=== PATIENT | male | born 1940 | race African-American/Black ===

== ENCOUNTER 2018-02-13 11:18 | Inpatient (IN) | payer MEDICARE, MEDICAID ==
[~2018-02-13] VITALS: Ht 170.2 cm; Wt 72.1 kg
[2018-02-13] MEDS ORDERED: LORAZEPAM2 MG/1 M4 ORAL (11:41)
[2018-02-13] MEDS ORDERED: NS 1000ml 1,400 ML IVLG ONE (12:15)
[2018-02-13 12:54] LABS: ANION GAP 12 mmol/L (5-15); BLOOD UREA NITROGEN 44 mg/dL (7-18); CALCIUM 9.3 MG/DL (8.5-10.1); CARBON DIOXIDE 28 MMOL/L (21-32); CHLORIDE 114 MMOL/L (98-107); CREATININE 1.4 MG/DL (0.55-1.30); POTASSIUM 3.5 MMOL/L (3.5-5.1); SODIUM 153 MMOL/L (136-145)
[2018-02-13 12:55] LABS: HEMATOCRIT 38.1 % (42.0-52.0); HEMOGLOBIN 13.1 G/DL (14.2-18.0); MEAN CORPUSCULAR VOLUME 84 FL (80-99); PLATELET COUNT 102 K/UL (150-450); RED BLOOD COUNT 4.53 M/UL (4.70-6.10); RED CELL DISTRIBUTION WIDTH 12.4 % (11.6-14.8); WHITE BLOOD COUNT 7.6 K/UL (4.8-10.8)
[2018-02-13 13:00] LABS: INR 1.1 (0.9-1.1)
[2018-02-13 13:09] LABS: ALANINE AMINOTRANSFERASE 78 U/L (12-78); ALBUMIN/GLOBULIN RATIO 0.7 (1.0-2.7); ALKALINE PHOSPHATASE 45 U/L (46-116); ASPARTATE AMINO TRANSFERASE 55 U/L (15-37); BILIRUBIN,TOTAL 0.2 MG/DL (0.2-1.0); CKMB 11.4 NG/ML (0.0-3.6); CREATINE KINASE 95 U/L (26-308)
[2018-02-13 13:14] VITALS: BP 106/85
--- NOTE | 2018-02-13 13:23 | Diagnostic Imaging Report ---
Indications: Altered mental status Technique: Spiral acquisitions obtained through the brain. Angled axial and coronal 5 x 5 mm slices were reconstructed. Total dose length product 1491.99 mGycm. CTDI vol(s) 70.38 mGy. Dose reduction achieved using automated exposure control Comparison: None. Findings: There is marked age-related enlargement of the ventricles and extra axial CSF spaces, and considerable periventricular deep white matter low-attenuation consistent with chronic ischemic change. There is an age-indeterminate lacunar infarct in the left external capsule region. No acute intracranial hemorrhage nor edema, mass effect, nor midline shift. Otherwise normal bradley-white differentiation. Visualized orbits and sinuses are unremarkable. The calvarium is intact. There is an ununited multipartite fracture deformity of the left zygomatic arch. Impression: Chronic and age-related changes. Age indeterminate left external capsule region lacunar infarct, suspect old. MRI may be useful to clarify if clinically indicated Negative for acute intracranial bleed or mass effect Multipartite fracture deformity of the left zygomatic arch. Age indeterminate although suspect old. Correlate with clinical history The CT scanner at [facility] is accredited by the [employer] and the scans are performed using protocols designed to limit radiation exposure to as low as reasonably achievable to attain images of sufficient resolution adequate for diagnostic evaluation.
--- NOTE | 2018-02-13 14:46 | Diagnostic Imaging Report ---
Indication: Cough Technique: One view of the chest Comparison: none Findings: Lungs are somewhat hyperinflated. Lungs and pleural spaces are clear. There are old healed left rib fractures. The aorta is somewhat tortuous. Impression: No acute process. Findings as noted
--- NOTE | 2018-02-13 16:20 | Emergency Room Report ---
History of Present Illness General Chief Complaint: Altered Level of Consciousness Source: Family Member Present Illness Allergies: Coded Allergies: No Known Allergies (Unverified , 02/13/18) Physical Exam Vital Signs Date Time Temp Pulse Resp B/P (MAP) Pulse Ox O2 Delivery O2 Flow Rate FiO2 02/13/18 11:34 66 12 Room Air 02/13/18 13:14 106/85 100 Medical Decision Making Diagnostic Impression: Primary Impression: Altered mental status Additional Impressions: CVA (cerebral vascular accident) Hypernatremia Dehydration Dysphagia Laboratory Tests Test 02/13/18 12:20 02/13/18 12:23 02/13/18 14:30 White Blood Count 7.6 K/UL (4.8-10.8) Red Blood Count 4.53 M/UL (4.70-6.10) L Hemoglobin 13.1 G/DL (14.2-18.0) L Hematocrit 38.1 % (42.0-52.0) L Mean Corpuscular Volume 84 FL (80-99) Mean Corpuscular Hemoglobin 28.9 PG (27.0-31.0) Mean Corpuscular Hemoglobin Concent 34.4 G/DL (32.0-36.0) Red Cell Distribution Width 12.4 % (11.6-14.8) Platelet Count 102 K/UL (150-450) L Mean Platelet Volume 9.2 FL (6.5-10.1) Neutrophils (%) (Auto) % (45.0-75.0) Lymphocytes (%) (Auto) % (20.0-45.0) Monocytes (%) (Auto) % (1.0-10.0) Eosinophils (%) (Auto) % (0.0-3.0) Basophils (%) (Auto) % (0.0-2.0) Differential Total Cells Counted 100 Neutrophils % (Manual) 92 % (45-75) H Lymphocytes % (Manual) 3 % (20-45) L Monocytes % (Manual) 5 % (1-10) Eosinophils % (Manual) 0 % (0-3) Basophils % (Manual) 0 % (0-2) Band Neutrophils 0 % (0-8) Platelet Estimate Decreased L Platelet Morphology Normal Red Blood Cell Morphology Normal Prothrombin Time 11.7 SEC (9.30-11.50) H Prothrombin Time INR 1.1 (0.9-1.1) PTT 30 SEC (23-33) Sodium Level 153 MMOL/L (136-145) H Potassium Level 3.5 MMOL/L (3.5-5.1) Chloride Level 114 MMOL/L (98-107) H Carbon Dioxide Level 28 MMOL/L (21-32) Anion Gap 12 mmol/L (5-15) Blood Urea Nitrogen 44 mg/dL (7-18) H Creatinine 1.4 MG/DL (0.55-1.30) H Estimate Glomerular Filtration Rate mL/min (>60) Glucose Level 89 MG/DL (74-106) Calcium Level 9.3 MG/DL (8.5-10.1) Phosphorus Level 4.0 MG/DL (2.5-4.9) Magnesium Level 2.5 MG/DL (1.8-2.4) H Total Bilirubin 0.2 MG/DL (0.2-1.0) Aspartate Amino Transferase (AST) 55 U/L (15-37) H Alanine Aminotransferase (ALT) 78 U/L (12-78) Alkaline Phosphatase 45 U/L (46-116) L Total Creatine Kinase 95 U/L (26-308) Creatine Kinase MB 11.4 NG/ML (0.0-3.6) H Creatine Kinase MB Relative Index 12.0 Troponin I 0.006 ng/mL (0.000-0.056) Total Protein 7.2 G/DL (6.4-8.2) Albumin 3.0 G/DL (3.4-5.0) L Globulin 4.2 g/dL Albumin/Globulin Ratio 0.7 (1.0-2.7) L Lactic Acid Level 3.90 mmol/L (0.4-2.0) H 4.10 mmol/L (0.66-2.22) H EKG Diagnostic Results Rate: normal Rhythm: NSR ST Segments: no acute changes Last Vital Signs Date Time Temp Pulse Resp B/P (MAP) Pulse Ox O2 Delivery O2 Flow Rate FiO2 02/13/18 13:17 58 12 Room Air 02/13/18 13:14 106/85 100 Referrals: NON PHYSICIAN (PCP) Leisa Montesinos DO Feb 13, 2018 16:20
[2018-02-13 17:11] VITALS: BP 112/91
[2018-02-13 18:25] VITALS: BP 113/54
[2018-02-13 20:00] VITALS: BP 96/67
[2018-02-13] MEDS ORDERED: Gadavist 7.5mMol/7.5ml vial IV PRN (21:00)
[2018-02-14] VITALS: BP 130/67
[2018-02-14 04:00] VITALS: BP 110/62
[2018-02-14 07:56] VITALS: BP 93/55
[2018-02-14 07:59] LABS: HEMATOCRIT 34.3 % (42.0-52.0); HEMOGLOBIN 11.6 G/DL (14.2-18.0); MEAN CORPUSCULAR VOLUME 84 FL (80-99); PLATELET COUNT 79 K/UL (150-450); RED BLOOD COUNT 4.09 M/UL (4.70-6.10); RED CELL DISTRIBUTION WIDTH 12.2 % (11.6-14.8); WHITE BLOOD COUNT 6.4 K/UL (4.8-10.8)
[2018-02-14] MEDS: Aspirin Baby 81mg ORAL SCH (08:08)
[2018-02-14 08:13] LABS: ANION GAP 12 mmol/L (5-15); BLOOD UREA NITROGEN 39 mg/dL (7-18); CALCIUM 8.5 MG/DL (8.5-10.1); CARBON DIOXIDE 25 MMOL/L (21-32); CHLORIDE 120 MMOL/L (98-107); CREATININE 1.3 MG/DL (0.55-1.30); POTASSIUM 3.7 MMOL/L (3.5-5.1); SODIUM 157 MMOL/L (136-145)
--- NOTE | 2018-02-14 10:45 | Consultation ---
History of Present Illness General Date patient seen: Feb 14, 2018 Chief Complaint: Altered Level of Consciousness Reason for Consultation: stage 4 sacral ulcer Present Illness HPI 77 year old male with multiple medical comorbidities currently admitted for medical care and management. upon admission noted to have a sacral decubitus ulcer. given size, location, and care required, surgery called to evaluate and assist with management. Patient seen, chart reviewed, patient examined. currently awake and alert but not very responsive. Allergies: Coded Allergies: No Known Allergies (Unverified , 02/13/18) Medication History Scheduled Lorazepam (Lorazepam), 2 MG ORAL THREE TIMES A DAY, (Reported) Patient History Limited by: medical condition History Provided By: Medical Record, PMD Healthcare decision maker Resuscitation status Full Code Advanced Directive on File No Past Medical/Surgical History Past Medical/Surgical History: (1) Dehydration (2) Dysphagia (3) Hypernatremia (4) Altered mental status (5) CVA (cerebral vascular accident) Review of Systems All Other Systems: negative except mentioned in HPI Physical Exam General Appearance: no apparent distress Lines, tubes and drains: peripheral HEENT: mucous membranes moist Neck: normal inspection Respiratory/Chest: normal breath sounds, no respiratory distress Cardiovascular/Chest: normal rate Abdomen: soft, no organomegaly, no mass Extremities: non-tender, other Skin Exam: other Neurologic: alert Last 24 Hour Vital Signs Date Time Temp Pulse Resp B/P (MAP) Pulse Ox O2 Delivery O2 Flow Rate FiO2 02/14/18 07:56 66 02/14/18 07:56 97.2 65 20 93/55 (68) 98 02/14/18 07:25 Room Air 02/14/18 04:00 57 02/14/18 04:00 97.2 60 20 110/62 (78) 98 02/14/18 00:00 65 02/14/18 00:00 97.0 97 20 130/67 (88) 96 02/13/18 21:29 Room Air 02/13/18 21:26 Room Air 02/13/18 20:00 97.1 60 20 96/67 (77) 99 02/13/18 20:00 56 02/13/18 18:25 96.3 58 21 113/54 (73) 99 02/13/18 17:11 57 19 112/91 100 Room Air 02/13/18 13:17 58 12 Room Air 02/13/18 13:14 58 12 106/85 100 Room Air 02/13/18 11:34 66 12 Room Air Intake and Output 02/13/18 02/14/18 19:00 07:00 Intake Total 1000 ml 628 ml Balance 1000 ml 628 ml Intake IV Total 1000 ml 628 ml Other 0 ml # Voids 1 # Bowel Movements 1 Laboratory Tests Test 02/13/18 12:20 02/13/18 12:23 02/13/18 14:30 02/14/18 06:48 White Blood Count 7.6 K/UL (4.8-10.8) 6.4 K/UL (4.8-10.8) Red Blood Count 4.53 M/UL (4.70-6.10) L 4.09 M/UL (4.70-6.10) L Hemoglobin 13.1 G/DL (14.2-18.0) L 11.6 G/DL (14.2-18.0) L Hematocrit 38.1 % (42.0-52.0) L 34.3 % (42.0-52.0) L Mean Corpuscular Volume 84 FL (80-99) 84 FL (80-99) Mean Corpuscular Hemoglobin 28.9 PG (27.0-31.0) 28.3 PG (27.0-31.0) Mean Corpuscular Hemoglobin Concent 34.4 G/DL (32.0-36.0) 33.7 G/DL (32.0-36.0) Red Cell Distribution Width 12.4 % (11.6-14.8) 12.2 % (11.6-14.8) Platelet Count 102 K/UL (150-450) L 79 K/UL (150-450) L Mean Platelet Volume 9.2 FL (6.5-10.1) 10.2 FL (6.5-10.1) H Neutrophils (%) (Auto) % (45.0-75.0) % (45.0-75.0) Lymphocytes (%) (Auto) % (20.0-45.0) % (20.0-45.0) Monocytes (%) (Auto) % (1.0-10.0) % (1.0-10.0) Eosinophils (%) (Auto) % (0.0-3.0) % (0.0-3.0) Basophils (%) (Auto) % (0.0-2.0) % (0.0-2.0) Differential Total Cells Counted 100 Neutrophils % (Manual) 92 % (45-75) H Pending Lymphocytes % (Manual) 3 % (20-45) L Pending Monocytes % (Manual) 5 % (1-10) Eosinophils % (Manual) 0 % (0-3) Basophils % (Manual) 0 % (0-2) Band Neutrophils 0 % (0-8) Platelet Estimate Decreased L Pending Platelet Morphology Normal Pending Red Blood Cell Morphology Normal Prothrombin Time 11.7 SEC (9.30-11.50) H Prothromb Time International Ratio 1.1 (0.9-1.1) Activated Partial Thromboplast Time 30 SEC (23-33) Sodium Level 153 MMOL/L (136-145) H 157 MMOL/L (136-145) H Potassium Level 3.5 MMOL/L (3.5-5.1) 3.7 MMOL/L (3.5-5.1) Chloride Level 114 MMOL/L (98-107) H 120 MMOL/L (98-107) H Carbon Dioxide Level 28 MMOL/L (21-32) 25 MMOL/L (21-32) Anion Gap 12 mmol/L (5-15) 12 mmol/L (5-15) Blood Urea Nitrogen 44 mg/dL (7-18) H 39 mg/dL (7-18) H Creatinine 1.4 MG/DL (0.55-1.30) H 1.3 MG/DL (0.55-1.30) Estimat Glomerular Filtration Rate mL/min (>60) mL/min (>60) Glucose Level 89 MG/DL (74-106) 60 MG/DL (74-106) L Calcium Level 9.3 MG/DL (8.5-10.1) 8.5 MG/DL (8.5-10.1) Phosphorus Level 4.0 MG/DL (2.5-4.9) Magnesium Level 2.5 MG/DL (1.8-2.4) H Total Bilirubin 0.2 MG/DL (0.2-1.0) Aspartate Amino Transf (AST/SGOT) 55 U/L (15-37) H Alanine Aminotransferase (ALT/SGPT) 78 U/L (12-78) Alkaline Phosphatase 45 U/L (46-116) L Total Creatine Kinase 95 U/L (26-308) Creatine Kinase MB 11.4 NG/ML (0.0-3.6) H Creatine Kinase MB Relative Index 12.0 Troponin I 0.006 ng/mL (0.000-0.056) Total Protein 7.2 G/DL (6.4-8.2) Albumin 3.0 G/DL (3.4-5.0) L Globulin 4.2 g/dL Albumin/Globulin Ratio 0.7 (1.0-2.7) L Lactic Acid Level 3.90 mmol/L (0.4-2.0) H 4.10 mmol/L (0.66-2.22) H Height (Feet): 5 Height (Inches): 7.00 Weight (Pounds): 100 Medications Current Medications Medications (Trade) Dose Ordered Sig/Cristiana Route PRN Reason Start Time Stop Time Status Last Admin Dose Admin Acetaminophen (Tylenol) 650 mg Q4H PRN ORAL Mild Pain (Pain Scale 1-3) 02/13/18 21:00 03/15/18 20:59 Aspirin (ASA) 81 mg DAILY ORAL 02/14/18 09:00 03/16/18 08:59 02/14/18 08:08 Dextrose (Dextrose 50%) 25 ml Q30M PRN IV Hypoglycemia 02/13/18 21:00 03/15/18 20:59 Dextrose (Dextrose 50%) 50 ml Q30M PRN IV Hypoglycemia 02/13/18 21:00 03/15/18 20:59 Gadobutrol (Gadavist) 7.5 mmol NOW PRN IV Radiology Procedure 02/13/18 21:00 02/16/18 20:52 Sodium Chloride 1,000 ml @ 75 mls/hr [id number] IV 02/13/18 21:30 03/15/18 21:29 02/13/18 22:37 Assessment/Plan Problem List: (1) Decubitus ulcer of sacral region, stage 4 Assessment & Plan: 77 year old male presented with Resolving stage 4 full thickness sacral decubitus ulcer. Seems to have had prior debridement and care. Seems to be healing well over time. Chronic. no odor. no significant drainage. no signs of infection. wound bed clean with granulation tissue. 3x4. brady-wound clean. Plan: Wash sacral decubitus ulcer daily with NS, apply hydrogel, pack with gauze, apply foam dressing daily and prn turn q2h air mattress heel protectors ICD Codes: L89.154 - Pressure ulcer of sacral region, stage 4 SNOMED: [id number], [id number] Rudy Cloud Feb 14, 2018 10:45
[2018-02-14 13:02] VITALS: BP 136/83
--- NOTE | 2018-02-14 13:22 | Consultation ---
Consult Note Consult Note asked to eval for renal failure- 77 year old male presented with Resolving stage 4 full thickness sacral decubitus ulcer. Seems to have had prior debridement and care. Seems to be healing well over time. Chronic. no odor. no significant drainage. no signs of infection. wound bed clean with granulation tissue. 3x4. brady-wound clean. patient examined- data reviewed bladder DIANNE 375 cc retention . Assessment/Plan Altered mental status CVA (cerebral vascular accident) Hypernatremia Dehydration / Urinary retention Dysphagia Decubitus ulcer of sacral region, stage 4 Plan: D5W Monitor renal parameters Skin care Ben Lopez MD Feb 14, 2018 13:22
--- NOTE | 2018-02-14 13:33 | Consultation ---
Consult Note Consult Note HEMATOLOGY-ONCOLOGY CONSULTATION REFERRING MD: Tyler Harmon REASON FOR CONSULT: Thrombocytopenia DATE OF CONSULT: 02/14/2018 HPI: 77 year old male with multiple medical comorbidities currently admitted for medical care and management. Upon admission noted to have a sacral decubitus ulcer. Patient seen, chart reviewed, patient examined. Pt currently awake and alert but not very responsive. Hematology services consulted for the evaluation of thrombocytopenia. Current Plt count at 79. Medication History Scheduled Lorazepam (Lorazepam), 2 MG ORAL THREE TIMES A DAY, (Reported) Patient History Limited by: medical condition History Provided By: Medical Record, PMD Healthcare decision maker Resuscitation status Full Code Advanced Directive on File No Past Medical/Surgical History Past Medical/Surgical History: (1) Dehydration (2) Dysphagia (3) Hypernatremia (4) Altered mental status (5) CVA (cerebral vascular accident) ROS Review of Systems All Other Systems: negative except mentioned in HPI Physical Exam Physical Exam General Appearance: no apparent distress Lines, tubes and drains: peripheral HEENT: mucous membranes moist Neck: normal inspection Respiratory/Chest: normal breath sounds, no respiratory distress Cardiovascular/Chest: normal rate Abdomen: soft, no organomegaly, no mass Extremities: non-tender, other Skin Exam: other Neurologic: alert Last 24 Hour Vital Signs Date Time Temp Pulse Resp B/P (MAP) Pulse Ox O2 Delivery O2 Flow Rate FiO2 02/14/18 07:56 66 02/14/18 07:56 97.2 65 20 93/55 (68) 98 02/14/18 07:25 Room Air 02/14/18 04:00 57 02/14/18 04:00 97.2 60 20 110/62 (78) 98 02/14/18 00:00 65 02/14/18 00:00 97.0 97 20 130/67 (88) 96 02/13/18 21:29 Room Air 02/13/18 21:26 Room Air 02/13/18 20:00 97.1 60 20 96/67 (77) 99 02/13/18 20:00 56 02/13/18 18:25 96.3 58 21 113/54 (73) 99 02/13/18 17:11 57 19 112/91 100 Room Air 02/13/18 13:17 58 12 Room Air 02/13/18 13:14 58 12 106/85 100 Room Air 02/13/18 11:34 66 12 Room Air Intake and Output 02/13/18 02/14/18 19:00 07:00 Intake Total 1000 ml 628 ml Balance 1000 ml 628 ml Intake IV Total 1000 ml 628 ml Other 0 ml # Voids 1 # Bowel Movements 1 Laboratory Tests Test 02/13/18 12:20 02/13/18 12:23 02/13/18 14:30 02/14/18 06:48 White Blood Count 7.6 K/UL (4.8-10.8) 6.4 K/UL (4.8-10.8) Red Blood Count 4.53 M/UL (4.70-6.10) L 4.09 M/UL (4.70-6.10) L Hemoglobin 13.1 G/DL (14.2-18.0) L 11.6 G/DL (14.2-18.0) L Hematocrit 38.1 % (42.0-52.0) L 34.3 % (42.0-52.0) L Mean Corpuscular Volume 84 FL (80-99) 84 FL (80-99) Mean Corpuscular Hemoglobin 28.9 PG (27.0-31.0) 28.3 PG (27.0-31.0) Mean Corpuscular Hemoglobin Concent 34.4 G/DL (32.0-36.0) 33.7 G/DL (32.0-36.0) Red Cell Distribution Width 12.4 % (11.6-14.8) 12.2 % (11.6-14.8) Platelet Count 102 K/UL (150-450) L 79 K/UL (150-450) L Mean Platelet Volume 9.2 FL (6.5-10.1) 10.2 FL (6.5-10.1) H Neutrophils (%) (Auto) % (45.0-75.0) % (45.0-75.0) Lymphocytes (%) (Auto) % (20.0-45.0) % (20.0-45.0) Monocytes (%) (Auto) % (1.0-10.0) % (1.0-10.0) Eosinophils (%) (Auto) % (0.0-3.0) % (0.0-3.0) Basophils (%) (Auto) % (0.0-2.0) % (0.0-2.0) Differential Total Cells Counted 100 Neutrophils % (Manual) 92 % (45-75) H Pending Lymphocytes % (Manual) 3 % (20-45) L Pending Monocytes % (Manual) 5 % (1-10) Eosinophils % (Manual) 0 % (0-3) Basophils % (Manual) 0 % (0-2) Band Neutrophils 0 % (0-8) Platelet Estimate Decreased L Pending Platelet Morphology Normal Pending Red Blood Cell Morphology Normal Prothrombin Time 11.7 SEC (9.30-11.50) H Prothromb Time International Ratio 1.1 (0.9-1.1) Activated Partial Thromboplast Time 30 SEC (23-33) Sodium Level 153 MMOL/L (136-145) H 157 MMOL/L (136-145) H Potassium Level 3.5 MMOL/L (3.5-5.1) 3.7 MMOL/L (3.5-5.1) Chloride Level 114 MMOL/L (98-107) H 120 MMOL/L (98-107) H Carbon Dioxide Level 28 MMOL/L (21-32) 25 MMOL/L (21-32) Anion Gap 12 mmol/L (5-15) 12 mmol/L (5-15) Blood Urea Nitrogen 44 mg/dL (7-18) H 39 mg/dL (7-18) H Creatinine 1.4 MG/DL (0.55-1.30) H 1.3 MG/DL (0.55-1.30) Estimat Glomerular Filtration Rate mL/min (>60) mL/min (>60) Glucose Level 89 MG/DL (74-106) 60 MG/DL (74-106) L Calcium Level 9.3 MG/DL (8.5-10.1) 8.5 MG/DL (8.5-10.1) Phosphorus Level 4.0 MG/DL (2.5-4.9) Magnesium Level 2.5 MG/DL (1.8-2.4) H Total Bilirubin 0.2 MG/DL (0.2-1.0) Aspartate Amino Transf (AST/SGOT) 55 U/L (15-37) H Alanine Aminotransferase (ALT/SGPT) 78 U/L (12-78) Alkaline Phosphatase 45 U/L (46-116) L Total Creatine Kinase 95 U/L (26-308) Creatine Kinase MB 11.4 NG/ML (0.0-3.6) H Creatine Kinase MB Relative Index 12.0 Troponin I 0.006 ng/mL (0.000-0.056) Total Protein 7.2 G/DL (6.4-8.2) Albumin 3.0 G/DL (3.4-5.0) L Globulin 4.2 g/dL Albumin/Globulin Ratio 0.7 (1.0-2.7) L Lactic Acid Level 3.90 mmol/L (0.4-2.0) H 4.10 mmol/L (0.66-2.22) H Height (Feet): 5 Height (Inches): 7.00 Weight (Pounds): 100 Medications Current Medications Medications (Trade) Dose Ordered Sig/Cristiana Route PRN Reason Start Time Stop Time Status Last Admin Dose Admin Acetaminophen (Tylenol) 650 mg Q4H PRN ORAL Mild Pain (Pain Scale 1-3) 02/13/18 21:00 03/15/18 20:59 Aspirin (ASA) 81 mg DAILY ORAL 02/14/18 09:00 03/16/18 08:59 02/14/18 08:08 Dextrose (Dextrose 50%) 25 ml Q30M PRN IV Hypoglycemia 02/13/18 21:00 03/15/18 20:59 Dextrose (Dextrose 50%) 50 ml Q30M PRN IV Hypoglycemia 02/13/18 21:00 03/15/18 20:59 Gadobutrol (Gadavist) 7.5 mmol NOW PRN IV Radiology Procedure 02/13/18 21:00 02/16/18 20:52 Sodium Chloride 1,000 ml @ 75 mls/hr [id number] IV 02/13/18 21:30 03/15/18 21:29 02/13/18 22:37 ASSESSMENT AND RECOMMENDATIONS # Thrombocytopenia - potential causes multifactorial, has lactic acidosis, with elevated lactate, on abx, evaluate liver and viral etiologies to begin. Also could be related to meds pt has received, --> Cont tot monitor for improvement --> peripheral smear ordered to evaluate for balsts --> Hep panel and HIV ordered --> US abd to evaluate for cirrhosis and hsm ordered --> Meds have been reviewed --> Ok for ppx if Plt count <20k abd fever, or if plt <10k without fever # Anemia, mild. Hgb >11, no w/u required at this time. --> Cont to monitor for stability # Sacral decub ulcer. Surgery is following, appreciate recs. --> Resolving stage 4 full thickness sacral decubitus ulcer. Seems to have had prior debridement and care. Seems to be healing well over time. Chronic. no odor. no significant drainage. no signs of infection. wound bed clean with granulation tissue. 3x4. brady-wound clean. --> Wash sacral decubitus ulcer daily with NS, apply hydrogel, pack with gauze, apply foam dressing daily and prn # CVA. # Dehydration. IVF # Dysphagia. GREATLY APPRECIATE CONSULTATION. Francisco Rodriguez MD Feb 14, 2018 13:33
[2018-02-14] MEDS: Pantoprazole Inj IVP SCH (13:58)
[2018-02-14 15:22] VITALS: BP 113/70
[2018-02-14] MEDS ORDERED: 1/2 NS 1000ml IV ONE (15:46)
[2018-02-14 17:53] LABS: APPEARANCE,URINE SLIGHTLY CLOUDY; BILIRUBIN, URINE NEGATIVE (NEGATIVE); GLUCOSE, URINE (UA) NEGATIVE (NEGATIVE); KETONES,URINE 1+ (NEGATIVE); LEUKOCYTE ESTERASE ,URINE 2+ (NEGATIVE); NITRITE,URINE NEGATIVE (NEGATIVE); PH,URINE 5 (4.5-8.0); PROTEIN,URINE 3+ (NEGATIVE); UROBILINOGEN,URINE 1 MG/DL (0.0-1.0)
[2018-02-14 18:00] LABS: COLOR,URINE BROWN
[2018-02-14 20:00] VITALS: BP 95/56
--- NOTE | 2018-02-14 20:00 | History and Physical Report ---
DATE OF ADMISSION: 02/13/2018 HISTORY OF PRESENT ILLNESS: This is a 77-year-old male, who came to the emergency room for having unable to talk, having dysphagia, hypernatremia, and altered mental status. The patient was found with possible TIA and CVA. Also, he has sacral decubiti stage IV. Discussed with the charge nurse and claiming that he came from home. This patient is unable to talk. He opens his eyes and making some movements of both hand and leg, but it looks like weakness on the left side. PAST MEDICAL HISTORY: Sacral decubiti, malnutrition, and dehydrated. PHYSICAL EXAMINATION: GENERAL: This is an elderly male, who is currently nonverbal and bedbound. VITAL SIGNS: Blood pressure 93/55, pulse 65, respirations 20, and temperature 97.2 degrees. SKIN: Good skin turgor. HEENT: AT/NC. EOMI. Eyes are open. NECK: Supple. CHEST: Bilateral crackles. CARDIOVASCULAR: Regular rhythm. No gallop. No murmur. ABDOMEN: Soft. Positive bowel sounds. Nontender. EXTREMITIES: No CCE. NEUROLOGIC: The patient has generalized weakness, but more weak on the left leg as well as right hand. SKIN: He has sacral decubiti stage IV. LABORATORY AND DIAGNOSTIC DATA: White count 6.4, hemoglobin 12, hematocrit 34, and platelets are and now 79,000. His chemistry panel, sodium 157, potassium 3.7, BUN 39, and creatinine 1.3. Lactic acid was 3.9 . Troponin 0.06. Imaging study is showing his head CT is negative. Chest x-ray is showing no acute process. ASSESSMENT: 1. Altered mental status. 2. CVA, possible TIA. 3. Acute renal failure. 4. Severe malnutrition. 5. Dehydration. 6. Hypernatremia. PLAN: We will admit on medical floor. Continue IV fluid. N.p.o. We will put NG tube and feed and medical treatment, and start pureed diet. The patient has been eating apple sauce. We will talk to the nurse and we will currently consider Neurology consult, MRI of the brain, carotid flow. Consider also Cardiology and Nephrology as well as Hematology/Oncology consult. Wound care. [place] M.D. DR: SLIME JOB#: [id number] CC:
[2018-02-14] MEDS ORDERED: LORazepam 0.5mg tab ORAL PRN (23:00)
--- NOTE | 2018-02-14 23:03 | Consultation ---
History of Present Illness General Chief Complaint: Altered Level of Consciousness Reason for Consultation: stage 4 sacral ulcer Present Illness HPI 77-year-old male, who bi to emergency room for having unable to talk, having dysphagia, hypernatremia, and altered mental status. the pt has hx of cognitive impairment and anxiety. the pt has waxing and waning of consciousness. poor memory Allergies: Coded Allergies: No Known Allergies (Unverified , 02/13/18) Medication History Scheduled Lorazepam (Lorazepam), 2 MG ORAL THREE TIMES A DAY, (Reported) Patient History Limited by: medical condition History Provided By: Patient, Medical Record Healthcare decision maker Resuscitation status Full Code Advanced Directive on File No Past Medical/Surgical History Past Medical/Surgical History: (1) Dehydration (2) Dysphagia (3) Hypernatremia (4) Altered mental status (5) CVA (cerebral vascular accident) (6) Decubitus ulcer of sacral region, stage 4 Review of Systems Psychiatric: Reports: prior hx, anxiety, depressed feelings, emotional problems Physical Exam General Appearance: confused, agitated Last 24 Hour Vital Signs Date Time Temp Pulse Resp B/P (MAP) Pulse Ox O2 Delivery O2 Flow Rate FiO2 02/14/18 21:00 Room Air 02/14/18 20:00 97.0 67 20 95/56 (69) 98 02/14/18 20:00 66 02/14/18 15:34 73 02/14/18 15:22 97.2 63 20 113/70 (84) 98 02/14/18 13:02 97.2 67 20 136/83 (100) 98 02/14/18 11:49 64 02/14/18 07:56 66 02/14/18 07:56 97.2 65 20 93/55 (68) 98 02/14/18 07:25 Room Air 02/14/18 04:00 57 02/14/18 04:00 97.2 60 20 110/62 (78) 98 02/14/18 00:00 65 02/14/18 00:00 97.0 97 20 130/67 (88) 96 Intake and Output 02/13/18 02/14/18 19:00 07:00 Intake Total 1000 ml 628 ml Balance 1000 ml 628 ml Intake IV Total 1000 ml 628 ml Other 0 ml # Voids 1 # Bowel Movements 1 Laboratory Tests Test 02/14/18 06:45 02/14/18 06:48 02/14/18 17:30 Haptoglobin Pending Lactate Dehydrogenase 260 U/L (81-234) H Hepatitis A IgM Antibody Pending Hepatitis B Surface Antigen Pending Hepatitis B Core IgM Antibody Pending Hepatitis C Antibody Pending White Blood Count 6.4 K/UL (4.8-10.8) Red Blood Count 4.09 M/UL (4.70-6.10) L Hemoglobin 11.6 G/DL (14.2-18.0) L Hematocrit 34.3 % (42.0-52.0) L Mean Corpuscular Volume 84 FL (80-99) Mean Corpuscular Hemoglobin 28.3 PG (27.0-31.0) Mean Corpuscular Hemoglobin Concent 33.7 G/DL (32.0-36.0) Red Cell Distribution Width 12.2 % (11.6-14.8) Platelet Count 79 K/UL (150-450) L Mean Platelet Volume 10.2 FL (6.5-10.1) H Neutrophils (%) (Auto) % (45.0-75.0) Lymphocytes (%) (Auto) % (20.0-45.0) Monocytes (%) (Auto) % (1.0-10.0) Eosinophils (%) (Auto) % (0.0-3.0) Basophils (%) (Auto) % (0.0-2.0) Differential Total Cells Counted 100 Neutrophils % (Manual) 76 % (45-75) H Lymphocytes % (Manual) 1 % (20-45) L Monocytes % (Manual) 6 % (1-10) Eosinophils % (Manual) 0 % (0-3) Basophils % (Manual) 0 % (0-2) Band Neutrophils 17 % (0-8) H Platelet Estimate Decreased L Platelet Morphology Normal Red Blood Cell Morphology Normal Sodium Level 157 MMOL/L (136-145) H Potassium Level 3.7 MMOL/L (3.5-5.1) Chloride Level 120 MMOL/L (98-107) H Carbon Dioxide Level 25 MMOL/L (21-32) Anion Gap 12 mmol/L (5-15) Blood Urea Nitrogen 39 mg/dL (7-18) H Creatinine 1.3 MG/DL (0.55-1.30) Estimat Glomerular Filtration Rate mL/min (>60) Glucose Level 60 MG/DL (74-106) L Calcium Level 8.5 MG/DL (8.5-10.1) C-Reactive Protein, Quantitative 3.7 mg/dL (0.00-0.90) H HIV (1&2) Antibody Rapid Negative (NEGATIVE) Urine Color Brown Urine Appearance Slightly cloudy Urine pH 5 (4.5-8.0) Urine Specific [place] 1.020 (1.005-1.035) Urine Protein 3+ (NEGATIVE) H Urine Glucose (UA) Negative (NEGATIVE) Urine Ketones 1+ (NEGATIVE) H Urine Blood 5+ (NEGATIVE) H Urine Nitrite Negative (NEGATIVE) Urine Bilirubin Negative (NEGATIVE) Urine Urobilinogen 1 MG/DL (0.0-1.0) H Urine Leukocyte Esterase 2+ (NEGATIVE) H Urine RBC 15-20 /HPF (0 - 0) H Urine WBC 5-10 /HPF (0 - 0) H Urine Squamous Epithelial Cells Few /LPF (NONE/OCC) Urine Amorphous Sediment Few /LPF (NONE) H Urine Bacteria Moderate /HPF (NONE) H Height (Feet): 5 Height (Inches): 7.00 Weight (Pounds): 100 Medications Current Medications Medications (Trade) Dose Ordered Sig/Cristiana Route PRN Reason Start Time Stop Time Status Last Admin Dose Admin Acetaminophen (Tylenol) 650 mg Q4H PRN ORAL Mild Pain (Pain Scale 1-3) 02/13/18 21:00 03/15/18 20:59 Aspirin (ASA) 81 mg DAILY ORAL 02/14/18 09:00 03/16/18 08:59 02/14/18 08:08 Dextrose 1,000 ml @ 100 mls/hr Q10H IV 02/14/18 13:30 03/16/18 13:29 02/14/18 22:01 Dextrose (Dextrose 50%) 25 ml Q30M PRN IV Hypoglycemia 02/13/18 21:00 03/15/18 20:59 Dextrose (Dextrose 50%) 50 ml Q30M PRN IV Hypoglycemia 02/13/18 21:00 03/15/18 20:59 Gadobutrol (Gadavist) 7.5 mmol NOW PRN IV Radiology Procedure 02/13/18 21:00 02/16/18 20:52 Pantoprazole (Protonix) 40 mg DAILY IVP 02/14/18 13:30 03/16/18 13:29 02/14/18 13:58 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
[2018-02-15] VITALS: BP 91/60
[2018-02-15 04:00] VITALS: BP 105/62
[2018-02-15 05:49] LABS: HEMATOCRIT 29.5 % (42.0-52.0); HEMOGLOBIN 9.9 G/DL (14.2-18.0); MEAN CORPUSCULAR VOLUME 84 FL (80-99); PLATELET COUNT 64 K/UL (150-450); RED BLOOD COUNT 3.53 M/UL (4.70-6.10); RED CELL DISTRIBUTION WIDTH 12.8 % (11.6-14.8); WHITE BLOOD COUNT 5.3 K/UL (4.8-10.8)
[2018-02-15 06:25] LABS: ALANINE AMINOTRANSFERASE 44 U/L (12-78); ALBUMIN 2.5 G/DL (3.4-5.0); ALBUMIN/GLOBULIN RATIO 0.8 (1.0-2.7); ALKALINE PHOSPHATASE 38 U/L (46-116); ANION GAP 9 mmol/L (5-15); ASPARTATE AMINO TRANSFERASE 33 U/L (15-37); BILIRUBIN,TOTAL 0.2 MG/DL (0.2-1.0); BLOOD UREA NITROGEN 34 mg/dL (7-18); CALCIUM 8.3 MG/DL (8.5-10.1); CARBON DIOXIDE 27 MMOL/L (21-32); CHLORIDE 114 MMOL/L (98-107); CHOLESTEROL 92 MG/DL (< 200); CREATININE 1.4 MG/DL (0.55-1.30); FERRITIN 594 NG/ML (8-388); GAMMA GLUTAMYL TRANSPEPTIDASE 10 U/L (5-85); HDL CHOLESTEROL 73 MG/DL (40-60); PHOSPHORUS 2.7 MG/DL (2.5-4.9); POTASSIUM 3.1 MMOL/L (3.5-5.1); SODIUM 150 MMOL/L (136-145); TRIGLYCERIDES 15 MG/DL (30-150)
[2018-02-15 08:00] VITALS: BP 123/59
[2018-02-15 08:29] LABS: % IRON SATURATION 42 % (15-50); IRON 39 ug/dL (50-175); TOTAL IRON BINDING CAPACITY 92 ug/dL (250-450)
--- NOTE | 2018-02-15 09:32 | General Progress Note ---
Assessment/Plan Status: stable Assessment/Plan # Thrombocytopenia - potential causes multifactorial, has lactic acidosis, with elevated lactate, on abx, evaluate liver and viral etiologies to begin. Also could be related to meds pt has received, --> Currently, plt remains low --> Cont tot monitor for improvement --> peripheral smear reviewed, no blasts --> Hep panel pending,HIV negative --> US abd to evaluate for cirrhosis and hsm ordered - pending --> Meds have been reviewed --> Ok for ppx if Plt count <20k abd fever, or if plt <10k without fever # Anemia of chronic disease due to underlying chronic medical issues, multifactorial. --> Anemia w/u has been reviewed. Ferritin at 594 --> Will trend cbc daily --> Hgb goal >7. Transfuse prn. --> No evidence of hemolysis, peripheral smear has been reviewed # Sacral decub ulcer. Surgery is following, appreciate recs. --> Resolving stage 4 full thickness sacral decubitus ulcer. Seems to have had prior debridement and care. Seems to be healing well over time. Chronic. no odor. no significant drainage. no signs of infection. wound bed clean with granulation tissue. 3x4. brady-wound clean. --> Wash sacral decubitus ulcer daily with NS, apply hydrogel, pack with gauze, apply foam dressing daily and prn # CVA. # Dehydration. IVF # Dysphagia. GREATLY APPRECIATE CONSULTATION. Subjective Date patient seen: Feb 15, 2018 Hematologic/Lymphatic: Reports: anemia Allergies: Coded Allergies: No Known Allergies (Unverified , 02/13/18) All Systems: reviewed and negative except above Subjective Pt in stable condition. No acute events. H/H stable. Objective Last 24 Hour Vital Signs Date Time Temp Pulse Resp B/P (MAP) Pulse Ox O2 Delivery O2 Flow Rate FiO2 02/15/18 04:00 65 02/15/18 04:00 97.0 62 20 105/62 (76) 97 02/15/18 00:00 96.8 72 20 91/60 (70) 98 02/15/18 00:00 70 02/14/18 21:00 Room Air 02/14/18 20:00 97.0 67 20 95/56 (69) 98 02/14/18 20:00 66 02/14/18 15:34 73 02/14/18 15:22 97.2 63 20 113/70 (84) 98 02/14/18 13:02 97.2 67 20 136/83 (100) 98 02/14/18 11:49 64 Intake and Output 02/14/18 02/15/18 19:00 07:00 Intake Total 650 ml 998 ml Output Total 700 ml 440 ml Balance -50 ml 558 ml Intake IV Total 650 ml 998 ml Output Urine Total 700 ml 440 ml Laboratory Tests 02/14/18 17:30: Urine Color Brown, Urine Appearance Slightly cloudy, Urine pH 5, Urine Specific [place] 1.020, Urine Protein 3+H, Urine Glucose (UA) Negative, Urine Ketones 1+H , Urine Blood 5+H, Urine Nitrite Negative, Urine Bilirubin Negative, Urine Urobilinogen 1H, Urine Leukocyte Esterase 2+H, Urine RBC 15-20H, Urine WBC 5-10H , Urine Squamous Epithelial Cells Few, Urine Amorphous Sediment FewH, Urine Bacteria ModerateH 02/15/18 05:34: White Blood Count 5.3, Red Blood Count 3.53L, Hemoglobin 9.9L, Hematocrit 29.5L , Mean Corpuscular Volume 84, Mean Corpuscular Hemoglobin 28.1, Mean Corpuscular Hemoglobin Concent 33.7, Red Cell Distribution Width 12.8, Platelet Count 64L, Mean Platelet Volume 10.3H, Neutrophils (%) (Auto) , Lymphocytes (%) (Auto) , Monocytes (%) (Auto) , Eosinophils (%) (Auto) , Basophils (%) (Auto) , Differential Total Cells Counted 100, Neutrophils % (Manual) 80H, Lymphocytes % (Manual) 8L, Monocytes % (Manual) 2, Eosinophils % (Manual) 1, Basophils % ( Manual) 0, Band Neutrophils 9H, Platelet Estimate DecreasedL, Platelet Morphology , Giant Platelets Rare, Hypochromasia 1+, Sodium Level 150H, Potassium Level 3.1L, Chloride Level 114H, Carbon Dioxide Level 27, Anion Gap 9 , Blood Urea Nitrogen 34H, Creatinine 1.4H, Estimat Glomerular Filtration Rate , Glucose Level 68L, Hemoglobin A1c 5.5, Uric Acid 5.8, Calcium Level 8.3L, Phosphorus Level 2.7, Magnesium Level 2.0, Iron Level 39L, Total Iron Binding Capacity 92L, Percent Iron Saturation 42, Unsaturated Iron Binding 53L, Ferritin 594H, Total Bilirubin 0.2, Gamma Glutamyl Transpeptidase 10, Aspartate Amino Transf (AST/SGOT) 33, Alanine Aminotransferase (ALT/SGPT) 44, Alkaline Phosphatase 38L, Pro-B-Type Natriuretic Peptide 495H, Total Protein 5.6L, Albumin 2.5L, Globulin 3.1, Albumin/Globulin Ratio 0.8L, Triglycerides Level 15L , Cholesterol Level 92, LDL Cholesterol 24, HDL Cholesterol 73H, Cholesterol/ HDL Ratio 1.3L, Vitamin B12 Level > 2000H, Folate 13.9, Thyroid Stimulating Hormone (TSH) 5.419H Height (Feet): 5 Height (Inches): 7.00 Weight (Pounds): 100 Objective General Appearance: no apparent distress Lines, tubes and drains: peripheral HEENT: mucous membranes moist Neck: normal inspection Respiratory/Chest: normal breath sounds, no respiratory distress Cardiovascular/Chest: normal rate Abdomen: soft, no organomegaly, no mass Extremities: non-tender, other Skin Exam: other Neurologic: alert Francisco Rodriguez MD Feb 15, 2018 09:32
[2018-02-15] MEDS: Pantoprazole Inj IVP SCH (09:55)
[2018-02-15] MEDS: Aspirin Baby 81mg ORAL SCH (09:56)
[2018-02-15 12:00] VITALS: BP 99/47
--- NOTE | 2018-02-15 12:50 | Nephrology Progress Note ---
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 (3) CVA (cerebral vascular accident) (4) Hypernatremia (5) Urinary retention Assessment Altered mental status CVA (cerebral vascular accident) Hypernatremia Dehydration / Urinary retention Dysphagia Decubitus ulcer of sacral region, stage 4 Plan Plan: D5W Monitor renal parameters Skin care donnelly Subjective ROS Limited/Unobtainable: No Constitutional: Reports: malaise, weakness Objective Objective Last 24 Hour Vital Signs Date Time Temp Pulse Resp B/P (MAP) Pulse Ox O2 Delivery O2 Flow Rate FiO2 02/15/18 12:00 67 02/15/18 12:00 67 18 99/47 (64) 94 02/15/18 09:00 Room Air 02/15/18 08:00 64 02/15/18 08:00 97.4 66 18 123/59 (80) 93 02/15/18 04:00 65 02/15/18 04:00 97.0 62 20 105/62 (76) 97 02/15/18 00:00 96.8 72 20 91/60 (70) 98 02/15/18 00:00 70 02/14/18 21:00 Room Air 02/14/18 20:00 97.0 67 20 95/56 (69) 98 02/14/18 20:00 66 02/14/18 15:34 73 02/14/18 15:22 97.2 63 20 113/70 (84) 98 02/14/18 13:02 97.2 67 20 136/83 (100) 98 Intake and Output 02/14/18 02/15/18 19:00 07:00 Intake Total 650 ml 998 ml Output Total 700 ml 440 ml Balance -50 ml 558 ml Intake IV Total 650 ml 998 ml Output Urine Total 700 ml 440 ml Laboratory Tests 02/14/18 17:30: Urine Color Brown, Urine Appearance Slightly cloudy, Urine pH 5, Urine Specific [place] 1.020, Urine Protein 3+H, Urine Glucose (UA) Negative, Urine Ketones 1+H , Urine Blood 5+H, Urine Nitrite Negative, Urine Bilirubin Negative, Urine Urobilinogen 1H, Urine Leukocyte Esterase 2+H, Urine RBC 15-20H, Urine WBC 5-10H , Urine Squamous Epithelial Cells Few, Urine Amorphous Sediment FewH, Urine Bacteria ModerateH 02/15/18 05:34: White Blood Count 5.3, Red Blood Count 3.53L, Hemoglobin 9.9L, Hematocrit 29.5L , Mean Corpuscular Volume 84, Mean Corpuscular Hemoglobin 28.1, Mean Corpuscular Hemoglobin Concent 33.7, Red Cell Distribution Width 12.8, Platelet Count 64L, Mean Platelet Volume 10.3H, Neutrophils (%) (Auto) , Lymphocytes (%) (Auto) , Monocytes (%) (Auto) , Eosinophils (%) (Auto) , Basophils (%) (Auto) , Differential Total Cells Counted 100, Neutrophils % (Manual) 80H, Lymphocytes % (Manual) 8L, Monocytes % (Manual) 2, Eosinophils % (Manual) 1, Basophils % ( Manual) 0, Band Neutrophils 9H, Platelet Estimate DecreasedL, Platelet Morphology , Giant Platelets Rare, Hypochromasia 1+, Sodium Level 150H, Potassium Level 3.1L, Chloride Level 114H, Carbon Dioxide Level 27, Anion Gap 9 , Blood Urea Nitrogen 34H, Creatinine 1.4H, Estimat Glomerular Filtration Rate , Glucose Level 68L, Hemoglobin A1c 5.5, Uric Acid 5.8, Calcium Level 8.3L, Phosphorus Level 2.7, Magnesium Level 2.0, Iron Level 39L, Total Iron Binding Capacity 92L, Percent Iron Saturation 42, Unsaturated Iron Binding 53L, Ferritin 594H, Total Bilirubin 0.2, Gamma Glutamyl Transpeptidase 10, Aspartate Amino Transf (AST/SGOT) 33, Alanine Aminotransferase (ALT/SGPT) 44, Alkaline Phosphatase 38L, Pro-B-Type Natriuretic Peptide 495H, Total Protein 5.6L, Albumin 2.5L, Globulin 3.1, Albumin/Globulin Ratio 0.8L, Triglycerides Level 15L , Cholesterol Level 92, LDL Cholesterol 24, HDL Cholesterol 73H, Cholesterol/ HDL Ratio 1.3L, Vitamin B12 Level > 2000H, Folate 13.9, Thyroid Stimulating Hormone (TSH) 5.419H Height (Feet): 5 Height (Inches): 7.00 Weight (Pounds): 100 General Appearance: no apparent distress Cardiovascular: normal rate Respiratory/Chest: decreased breath sounds Abdomen: distended Ben Gandhi MD Feb 15, 2018 12:50
[2018-02-15] MEDS ORDERED: Sodium Chloride 500ML 500 ML IV PRN ×2 (13:45→14:20)
--- NOTE | 2018-02-15 15:00 | Progress Note ---
DATE: 02/15/2018 SUBJECTIVE: This is an elderly male, sitting in the bed, nonverbal, opens his eyes and mouth, but unable to swallow. He has been NPO. The patient also have some tremors, but is not following commands. OBJECTIVE: VITAL SIGNS: Blood pressure is 99/47, asymptomatic, pulse 67, respirations 18. No fever. SKIN: Good skin turgor. HEENT: Eyes are open. NECK: Supple. CHEST: Bilateral few crackles. CARDIOVASCULAR: Regular rhythm. No gallop. No murmur. ABDOMEN: Soft. EXTREMITIES: CCE. NEUROLOGIC: Generalized weakness. LABORATORY DATA: His white count is 5.3, hemoglobin 10, hematocrit 23, and platelets are 64, is going down. His urine test also showing ketones, 5+ blood, 2+ leukocyte esterase, and wbc 5 to 10. ASSESSMENT AND PLAN: 1. Altered mental status. 2. UTI. 3. Dehydration. 4. Encephalopathy. 5. Hypernatremia. 6. Dehydration. We will currently continue NPO. Had NG tube feeding. Continue IV fluid. Consider Neurology consult and we will talk to the family for his home medications. PT and OT, swallow. We will also put him on antibiotics and monitor his platelets. Hematology/Oncology consult and consider also GI consult because his hemoglobin has dropped from 13 to 9. Discussed with the charge nurse. [place] M.D. DR: SHENA JOB#: [id number] CC:
[2018-02-15 16:00] VITALS: BP 100/49
--- NOTE | 2018-02-15 19:57 | Cardiology Progress Note ---
Assessment/Plan Assessment/Plan The patient is seen and examined, full consult note will be dictated. Objective Last 24 Hour Vital Signs Date Time Temp Pulse Resp B/P (MAP) Pulse Ox O2 Delivery O2 Flow Rate FiO2 02/15/18 16:00 63 18 100/49 (66) 95 02/15/18 16:00 61 02/15/18 12:00 67 02/15/18 12:00 67 18 99/47 (64) 94 02/15/18 09:00 Room Air 02/15/18 08:00 64 02/15/18 08:00 97.4 66 18 123/59 (80) 93 02/15/18 04:00 65 02/15/18 04:00 97.0 62 20 105/62 (76) 97 02/15/18 00:00 96.8 72 20 91/60 (70) 98 02/15/18 00:00 70 02/14/18 21:00 Room Air 02/14/18 20:00 97.0 67 20 95/56 (69) 98 02/14/18 20:00 66 Intake and Output 02/14/18 02/15/18 19:00 07:00 Intake Total 650 ml 998 ml Output Total 700 ml 440 ml Balance -50 ml 558 ml Intake IV Total 650 ml 998 ml Output Urine Total 700 ml 440 ml Laboratory Tests Test 02/15/18 05:34 White Blood Count 5.3 K/UL (4.8-10.8) Red Blood Count 3.53 M/UL (4.70-6.10) L Hemoglobin 9.9 G/DL (14.2-18.0) L Hematocrit 29.5 % (42.0-52.0) L Mean Corpuscular Volume 84 FL (80-99) Mean Corpuscular Hemoglobin 28.1 PG (27.0-31.0) Mean Corpuscular Hemoglobin Concent 33.7 G/DL (32.0-36.0) Red Cell Distribution Width 12.8 % (11.6-14.8) Platelet Count 64 K/UL (150-450) L Mean Platelet Volume 10.3 FL (6.5-10.1) H Neutrophils (%) (Auto) % (45.0-75.0) Lymphocytes (%) (Auto) % (20.0-45.0) Monocytes (%) (Auto) % (1.0-10.0) Eosinophils (%) (Auto) % (0.0-3.0) Basophils (%) (Auto) % (0.0-2.0) Differential Total Cells Counted 100 Neutrophils % (Manual) 80 % (45-75) H Lymphocytes % (Manual) 8 % (20-45) L Monocytes % (Manual) 2 % (1-10) Eosinophils % (Manual) 1 % (0-3) Basophils % (Manual) 0 % (0-2) Band Neutrophils 9 % (0-8) H Platelet Estimate Decreased L Platelet Morphology Giant Platelets Rare Hypochromasia 1+ Sodium Level 150 MMOL/L (136-145) H Potassium Level 3.1 MMOL/L (3.5-5.1) L Chloride Level 114 MMOL/L (98-107) H Carbon Dioxide Level 27 MMOL/L (21-32) Anion Gap 9 mmol/L (5-15) Blood Urea Nitrogen 34 mg/dL (7-18) H Creatinine 1.4 MG/DL (0.55-1.30) H Estimat Glomerular Filtration Rate mL/min (>60) Glucose Level 68 MG/DL (74-106) L Hemoglobin A1c 5.5 % (4.3-6.0) Uric Acid 5.8 MG/DL (2.6-7.2) Calcium Level 8.3 MG/DL (8.5-10.1) L Phosphorus Level 2.7 MG/DL (2.5-4.9) Magnesium Level 2.0 MG/DL (1.8-2.4) Iron Level 39 ug/dL (50-175) L Total Iron Binding Capacity 92 ug/dL (250-450) L Percent Iron Saturation 42 % (15-50) Unsaturated Iron Binding 53 ug/dL (112-346) L Ferritin 594 NG/ML (8-388) H Total Bilirubin 0.2 MG/DL (0.2-1.0) Gamma Glutamyl Transpeptidase 10 U/L (5-85) Aspartate Amino Transf (AST/SGOT) 33 U/L (15-37) Alanine Aminotransferase (ALT/SGPT) 44 U/L (12-78) Alkaline Phosphatase 38 U/L (46-116) L Pro-B-Type Natriuretic Peptide 495 pg/mL (0-125) H Total Protein 5.6 G/DL (6.4-8.2) L Albumin 2.5 G/DL (3.4-5.0) L Globulin 3.1 g/dL Albumin/Globulin Ratio 0.8 (1.0-2.7) L Triglycerides Level 15 MG/DL (30-150) L Cholesterol Level 92 MG/DL (< 200) LDL Cholesterol 24 mg/dL (<100) HDL Cholesterol 73 MG/DL (40-60) H Cholesterol/HDL Ratio 1.3 (3.3-4.4) L Vitamin B12 Level > 2000 PG/ML (193-986) H Folate 13.9 NG/ML (8.6-58.9) Thyroid Stimulating Hormone (TSH) 5.419 uiU/mL (0.358-3.740) Microbiology Date/Time Source Procedure Growth Status 02/13/18 12:30 Blood Blood Culture - Preliminary NO GROWTH AFTER 24 HOURS Resulted 02/13/18 12:15 Blood Blood Culture - Preliminary NO GROWTH AFTER 24 HOURS Resulted 02/14/18 17:30 Indwelling Cath Urine Culture - Preliminary NO GROWTH Resulted Toney Chery MD Feb 15, 2018 19:57
[2018-02-15 20:00] VITALS: BP 110/60
[2018-02-15] MEDS: Atorvastatin 20mg tab ORAL SCH (21:31)
--- NOTE | 2018-02-15 21:45 | Consultation ---
DATE OF CONSULTATION: 02/15/2018 CARDIOLOGY CONSULTATION CONSULTING PHYSICIAN: Toney Chery M.D. REFERRING PHYSICIAN: Tyler Harmon M.D. REASON FOR CONSULTATION: Management of hypotension. HISTORY OF PRESENT ILLNESS: The patient is a very unfortunate 77-year-old gentleman with multiple medical problems, who was transferred from the alf facility for inability to verbalize as well as a electrolyte abnormality and altered level of consciousness. In the emergency department, initial workup was done, which was a CT of head that revealed chronic and age-related changes, left external capsule region lacunar infarct age indeterminate, possibly old and negative for acute intracranial bleed or mass effect. His blood pressure at the time of arrival to the hospital was 106/85, this pressure dropped while he was in the emergency department to a value of 96/67 mmHg. His heart rate was within normal limits at 66, respiration of 12 on room air, O2 saturation was also 100%. Some initial laboratory was done in the emergency department, which revealed presence of hypernatremia with serum sodium of 153 and evidence of renal failure with BUN and creatinine of 44 and 1.4 respectively. His troponin I level was at 0.006. The patient was admitted to the telemetry for further evaluation and management of possible hypovolemia due to severe intravascular volume depletion as well as acute kidney injury. PAST MEDICAL HISTORY: Includes, 1. CVA. 2. Sacral decubitus. 3. Malnutrition. MEDICATIONS: List of medication includes lorazepam 2 mg three times a day. FAMILY HISTORY: No premature coronary artery disease or arrhythmogenic in first-degree relative. SOCIAL HISTORY: There is no history of tobacco, alcohol, or illicit drug use. ALLERGIES: No known drug allergies. REVIEW OF SYSTEMS: Unable to obtain as the patient is nonverbal. PHYSICAL EXAMINATION: VITAL SIGNS: Blood pressure was 96/67, heart rate of 60, respirations 20, and O2 saturation 99% to 100% on room air. GENERAL: The patient is a very unfortunate 77-year-old gentleman, who is awake and not following commands. Nonverbal. Mouth open. NG tube in place. HEENT: Atraumatic and normocephalic. Anicteric. Pupils are equal, round, and reactive to light and accommodation. Extraocular muscles intact. NECK: JVP is less than 5 cm. No carotid bruit. Carotid upstrokes 2+ bilaterally. CARDIOVASCULAR: Normal S1, S2. Regular rate and rhythm. No murmurs, gallops, or rubs. PMI is at fourth intercostal space at the midclavicular line. LUNGS: Clear to auscultation bilaterally. ABDOMEN: Soft, nontender, and nondistended. No hepatosplenomegaly. Positive bowel sounds. EXTREMITIES: No evidence of edema, clubbing, or cyanosis. LABORATORY AND DIAGNOSTIC DATA: Laboratory findings, sodium was 153, potassium is 3.5, chloride 114, bicarbonate 28, BUN of 44, creatinine 1.4, glucose 89, calcium is 9.3, and magnesium 2.5. Troponin I was 0.006. WBC 7.6, hemoglobin 13.1, hematocrit 38.1, and platelet count was 102,000. INR was 101. CT of the head was negative for any intracranial pathology, however, left external capsule lacunar infarct was noted. Chest x-ray showed no acute cardiopulmonary disease with hyperinflated lungs and tortuous aorta. ASSESSMENT AND PLAN: The patient is a very unfortunate 77-year-old gentleman, seen in Cardiology consultation at request of Dr. Harmon. 1. Hypotension, secondary to intravascular volume depletion as the patient shows free water deficit on laboratory findings verified by very significant high serum sodium level. The patient will benefit from hypotonic infusion and electrolyte replacement. Also accordingly, prerenal azotemia, which hopefully responds to intravenous fluids and increased renal blood flow. 2. I would like to all obtain 2D echocardiography for assessment of LV systolic function. 3. Dysphagia, prior history of CVA. CT of head did not show any acute changes, however, the patient would probably benefit from MRI of brain, which was recommended by the radiologist. 4. At this time, the patient will benefit from aspirin and statins. 5. Prerenal azotemia/acute kidney injury. 6. Anemia with thrombocytopenia. 7. Failure to thrive. I would like to thank, Dr. Harmon, for courtesy of this consultation. Toney Chery M.D. DR: GUILLERMO JOB#: [id number] CC:
--- NOTE | 2018-02-15 23:51 | General Progress Note ---
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 (2) Anxiety ICD Codes: F41.9 - Anxiety disorder, unspecified SNOMED: 54312120 Status: stable Assessment/Plan ativan prn seroquel prn raise the head to prevent aspiration Subjective Neurologic/Psychiatric: Reports: anxiety, depressed Allergies: Coded Allergies: No Known Allergies (Unverified , 02/13/18) Objective Last 24 Hour Vital Signs Date Time Temp Pulse Resp B/P (MAP) Pulse Ox O2 Delivery O2 Flow Rate FiO2 02/15/18 21:00 Room Air 02/15/18 19:12 61 02/15/18 16:00 63 18 100/49 (66) 95 02/15/18 16:00 61 02/15/18 12:00 67 02/15/18 12:00 67 18 99/47 (64) 94 02/15/18 09:00 Room Air 02/15/18 08:00 64 02/15/18 08:00 97.4 66 18 123/59 (80) 93 02/15/18 04:00 65 02/15/18 04:00 97.0 62 20 105/62 (76) 97 02/15/18 00:00 96.8 72 20 91/60 (70) 98 02/15/18 00:00 70 Intake and Output 02/14/18 02/15/18 19:00 07:00 Intake Total 650 ml 998 ml Output Total 700 ml 440 ml Balance -50 ml 558 ml Intake IV Total 650 ml 998 ml Output Urine Total 700 ml 440 ml Laboratory Tests 02/15/18 05:34: White Blood Count 5.3, Red Blood Count 3.53L, Hemoglobin 9.9L, Hematocrit 29.5L , Mean Corpuscular Volume 84, Mean Corpuscular Hemoglobin 28.1, Mean Corpuscular Hemoglobin Concent 33.7, Red Cell Distribution Width 12.8, Platelet Count 64L, Mean Platelet Volume 10.3H, Neutrophils (%) (Auto) , Lymphocytes (%) (Auto) , Monocytes (%) (Auto) , Eosinophils (%) (Auto) , Basophils (%) (Auto) , Differential Total Cells Counted 100, Neutrophils % (Manual) 80H, Lymphocytes % (Manual) 8L, Monocytes % (Manual) 2, Eosinophils % (Manual) 1, Basophils % ( Manual) 0, Band Neutrophils 9H, Platelet Estimate DecreasedL, Platelet Morphology , Giant Platelets Rare, Hypochromasia 1+, Sodium Level 150H, Potassium Level 3.1L, Chloride Level 114H, Carbon Dioxide Level 27, Anion Gap 9 , Blood Urea Nitrogen 34H, Creatinine 1.4H, Estimat Glomerular Filtration Rate , Glucose Level 68L, Hemoglobin A1c 5.5, Uric Acid 5.8, Calcium Level 8.3L, Phosphorus Level 2.7, Magnesium Level 2.0, Iron Level 39L, Total Iron Binding Capacity 92L, Percent Iron Saturation 42, Unsaturated Iron Binding 53L, Ferritin 594H, Total Bilirubin 0.2, Gamma Glutamyl Transpeptidase 10, Aspartate Amino Transf (AST/SGOT) 33, Alanine Aminotransferase (ALT/SGPT) 44, Alkaline Phosphatase 38L, Pro-B-Type Natriuretic Peptide 495H, Total Protein 5.6L, Albumin 2.5L, Globulin 3.1, Albumin/Globulin Ratio 0.8L, Triglycerides Level 15L , Cholesterol Level 92, LDL Cholesterol 24, HDL Cholesterol 73H, Cholesterol/ HDL Ratio 1.3L, Vitamin B12 Level > 2000H, Folate 13.9, Thyroid Stimulating Hormone (TSH) 5.419H Height (Feet): 5 Height (Inches): 7.00 Weight (Pounds): 100 General Appearance: no apparent distress, alert, confused Jesus Jack MD Feb 15, 2018 23:51
[2018-02-16 04:00] VITALS: BP 102/67
[2018-02-16 07:52] LABS: HEMATOCRIT 32.5 % (42.0-52.0); HEMOGLOBIN 11.1 G/DL (14.2-18.0); MEAN CORPUSCULAR VOLUME 83 FL (80-99); PLATELET COUNT 58 K/UL (150-450); RED BLOOD COUNT 3.93 M/UL (4.70-6.10); RED CELL DISTRIBUTION WIDTH 12.4 % (11.6-14.8); WHITE BLOOD COUNT 5.7 K/UL (4.8-10.8)
[2018-02-16 08:00] VITALS: BP 110/77
[2018-02-16 08:22] LABS: ALANINE AMINOTRANSFERASE 72 U/L (12-78); ALBUMIN 2.7 G/DL (3.4-5.0); ALBUMIN/GLOBULIN RATIO 0.9 (1.0-2.7); ALKALINE PHOSPHATASE 51 U/L (46-116); ANION GAP 9 mmol/L (5-15); ASPARTATE AMINO TRANSFERASE 80 U/L (15-37); BILIRUBIN,TOTAL 0.5 MG/DL (0.2-1.0); BLOOD UREA NITROGEN 31 mg/dL (7-18); CALCIUM 8.6 MG/DL (8.5-10.1); CARBON DIOXIDE 27 MMOL/L (21-32); CHLORIDE 111 MMOL/L (98-107); CREATININE 1.3 MG/DL (0.55-1.30); PHOSPHORUS 2.8 MG/DL (2.5-4.9); POTASSIUM 3.6 MMOL/L (3.5-5.1); SODIUM 147 MMOL/L (136-145)
[2018-02-16] MEDS: Aspirin EC 81mg tab ORAL SCH (08:54)
[2018-02-16] MEDS: Pantoprazole Inj IVP SCH (08:54)
--- NOTE | 2018-02-16 10:45 | Diagnostic Imaging Report ---
Indication: Post nasogastric tube placement Technique: Supine view of the upper abdomen Comparison: none Findings: There is a nasogastric tube, tip projected at the level of the gastric body, proximal port well beyond the gastroesophageal junction. There is a Allred catheter in place. Considerable gas is seen in nondilated colon Impression: Satisfactory nasogastric intubation Other findings as noted This agrees with the preliminary interpretation provided overnight by [facility].
--- NOTE | 2018-02-16 11:20 | Nephrology Progress Note ---
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 (3) CVA (cerebral vascular accident) (4) Hypernatremia (5) Urinary retention Assessment Altered mental status CVA (cerebral vascular accident) Hypernatremia Dehydration / Urinary retention Dysphagia Decubitus ulcer of sacral region, stage 4 Plan Plan: D5W Monitor renal parameters Skin care donnelly Subjective ROS Limited/Unobtainable: No Constitutional: Reports: malaise Objective Objective Last 24 Hour Vital Signs Date Time Temp Pulse Resp B/P (MAP) Pulse Ox O2 Delivery O2 Flow Rate FiO2 02/16/18 09:00 Room Air 02/16/18 08:00 97.0 64 21 110/77 (88) 98 02/16/18 08:00 62 02/16/18 04:00 96.7 63 18 102/67 (79) 97 02/16/18 03:54 62 02/15/18 23:20 62 02/15/18 21:00 Room Air 02/15/18 20:00 97.2 79 20 110/60 (77) 91 02/15/18 19:12 61 02/15/18 16:00 63 18 100/49 (66) 95 02/15/18 16:00 61 02/15/18 12:00 67 02/15/18 12:00 67 18 99/47 (64) 94 Intake and Output 02/15/18 02/16/18 19:00 07:00 Intake Total 1170 ml Output Total 350 ml 300 ml Balance -350 ml 870 ml Intake Free Water 30 ml IV Total 1100 ml Tube Feeding 40 ml Output Urine Total 350 ml 300 ml Laboratory Tests 02/16/18 06:25: White Blood Count 5.7, Red Blood Count 3.93L, Hemoglobin 11.1L, Hematocrit 32.5L , Mean Corpuscular Volume 83, Mean Corpuscular Hemoglobin 28.2, Mean Corpuscular Hemoglobin Concent 34.1, Red Cell Distribution Width 12.4, Platelet Count 58L, Mean Platelet Volume 12.3H, Neutrophils (%) (Auto) , Lymphocytes (%) (Auto) , Monocytes (%) (Auto) , Eosinophils (%) (Auto) , Basophils (%) (Auto) , Differential Total Cells Counted 100, Neutrophils % (Manual) 79H, Lymphocytes % (Manual) 8L, Monocytes % (Manual) 2, Eosinophils % (Manual) 0, Basophils % ( Manual) 0, Band Neutrophils 11H, Platelet Estimate DecreasedL, Platelet Morphology Normal, Sodium Level 147H, Potassium Level 3.6, Chloride Level 111H, Carbon Dioxide Level 27, Anion Gap 9, Blood Urea Nitrogen 31H, Creatinine 1.3, Estimat Glomerular Filtration Rate , Glucose Level 62L, Uric Acid 5.6, Calcium Level 8.6, Phosphorus Level 2.8, Magnesium Level 2.0, Total Bilirubin 0.5, Aspartate Amino Transf (AST/SGOT) 80H, Alanine Aminotransferase (ALT/SGPT) 72, Alkaline Phosphatase 51, Total Protein 5.7L, Albumin 2.7L, Globulin 3.0, Albumin /Globulin Ratio 0.9L Height (Feet): 5 Height (Inches): 7.00 Weight (Pounds): 100 General Appearance: no apparent distress Cardiovascular: normal rate Respiratory/Chest: decreased breath sounds Abdomen: soft Objective no change Ben Gandhi MD Feb 16, 2018 11:20
--- NOTE | 2018-02-16 11:44 | General Progress Note ---
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 (2) Anxiety ICD Codes: F41.9 - Anxiety disorder, unspecified SNOMED: 13545771 Status: unchanged Assessment/Plan ativan prn seroquel prn raise the head to prevent aspiration the pt was administer ativan and the pt became hypotensive Subjective Date patient seen: Feb 16, 2018 Neurologic/Psychiatric: Reports: anxiety Allergies: Coded Allergies: No Known Allergies (Unverified , 02/13/18) Subjective The pt Objective Last 24 Hour Vital Signs Date Time Temp Pulse Resp B/P (MAP) Pulse Ox O2 Delivery O2 Flow Rate FiO2 02/16/18 09:00 Room Air 02/16/18 08:00 97.0 64 21 110/77 (88) 98 02/16/18 08:00 62 02/16/18 04:00 96.7 63 18 102/67 (79) 97 02/16/18 03:54 62 02/15/18 23:20 62 02/15/18 21:00 Room Air 02/15/18 20:00 97.2 79 20 110/60 (77) 91 02/15/18 19:12 61 02/15/18 16:00 63 18 100/49 (66) 95 02/15/18 16:00 61 02/15/18 12:00 67 02/15/18 12:00 67 18 99/47 (64) 94 Intake and Output 02/15/18 02/16/18 19:00 07:00 Intake Total 1170 ml Output Total 350 ml 300 ml Balance -350 ml 870 ml Intake Free Water 30 ml IV Total 1100 ml Tube Feeding 40 ml Output Urine Total 350 ml 300 ml Laboratory Tests 02/16/18 06:25: White Blood Count 5.7, Red Blood Count 3.93L, Hemoglobin 11.1L, Hematocrit 32.5L , Mean Corpuscular Volume 83, Mean Corpuscular Hemoglobin 28.2, Mean Corpuscular Hemoglobin Concent 34.1, Red Cell Distribution Width 12.4, Platelet Count 58L, Mean Platelet Volume 12.3H, Neutrophils (%) (Auto) , Lymphocytes (%) (Auto) , Monocytes (%) (Auto) , Eosinophils (%) (Auto) , Basophils (%) (Auto) , Differential Total Cells Counted 100, Neutrophils % (Manual) 79H, Lymphocytes % (Manual) 8L, Monocytes % (Manual) 2, Eosinophils % (Manual) 0, Basophils % ( Manual) 0, Band Neutrophils 11H, Platelet Estimate DecreasedL, Platelet Morphology Normal, Sodium Level 147H, Potassium Level 3.6, Chloride Level 111H, Carbon Dioxide Level 27, Anion Gap 9, Blood Urea Nitrogen 31H, Creatinine 1.3, Estimat Glomerular Filtration Rate , Glucose Level 62L, Uric Acid 5.6, Calcium Level 8.6, Phosphorus Level 2.8, Magnesium Level 2.0, Total Bilirubin 0.5, Aspartate Amino Transf (AST/SGOT) 80H, Alanine Aminotransferase (ALT/SGPT) 72, Alkaline Phosphatase 51, Total Protein 5.7L, Albumin 2.7L, Globulin 3.0, Albumin /Globulin Ratio 0.9L Height (Feet): 5 Height (Inches): 7.00 Weight (Pounds): 100 General Appearance: alert, lethargic - waxing and waning , confused Neurologic: disoriented, depressed affect Jesus Jack MD Feb 16, 2018 11:44
[2018-02-16 12:00] VITALS: BP 112/78
--- NOTE | 2018-02-16 12:03 | General Progress Note ---
Assessment/Plan Status: stable Assessment/Plan # Thrombocytopenia - potential causes multifactorial, has lactic acidosis, with elevated lactate, on abx, evaluate liver and viral etiologies to begin. Also could be related to meds pt has received, --> Currently, plt remains low --> Cont tot monitor for improvement --> peripheral smear reviewed, no blasts --> Hep panel negative,HIV negative --> US abd to evaluate for cirrhosis and hsm ordered - pending --> Meds have been reviewed --> Ok for ppx if Plt count <20k abd fever, or if plt <10k without fever # Anemia of chronic disease due to underlying chronic medical issues, multifactorial. --> Anemia w/u has been reviewed. Ferritin at 594 --> Will trend cbc daily --> Hgb goal >7. Transfuse prn. --> No evidence of hemolysis, peripheral smear has been reviewed # Sacral decub ulcer. Surgery is following, appreciate recs. --> Resolving stage 4 full thickness sacral decubitus ulcer. Seems to have had prior debridement and care. Seems to be healing well over time. Chronic. no odor. no significant drainage. no signs of infection. wound bed clean with granulation tissue. 3x4. brady-wound clean. --> Wash sacral decubitus ulcer daily with NS, apply hydrogel, pack with gauze, apply foam dressing daily and prn # CVA. # Dehydration. IVF # Dysphagia. GREATLY APPRECIATE CONSULTATION. Subjective Date patient seen: Feb 16, 2018 Hematologic/Lymphatic: Reports: anemia Allergies: Coded Allergies: No Known Allergies (Unverified , 02/13/18) All Systems: reviewed and negative except above Subjective Pt in stable condition. No acute events. H/H stable. Pt's son to sign [facility] [address] this afternoon. Objective Last 24 Hour Vital Signs Date Time Temp Pulse Resp B/P (MAP) Pulse Ox O2 Delivery O2 Flow Rate FiO2 02/16/18 09:00 Room Air 02/16/18 08:00 97.0 64 21 110/77 (88) 98 02/16/18 08:00 62 02/16/18 04:00 96.7 63 18 102/67 (79) 97 02/16/18 03:54 62 02/15/18 23:20 62 02/15/18 21:00 Room Air 02/15/18 20:00 97.2 79 20 110/60 (77) 91 02/15/18 19:12 61 02/15/18 16:00 63 18 100/49 (66) 95 02/15/18 16:00 61 02/15/18 12:00 67 02/15/18 12:00 67 18 99/47 (64) 94 Intake and Output 02/15/18 02/16/18 19:00 07:00 Intake Total 1170 ml Output Total 350 ml 300 ml Balance -350 ml 870 ml Intake Free Water 30 ml IV Total 1100 ml Tube Feeding 40 ml Output Urine Total 350 ml 300 ml Laboratory Tests 02/16/18 06:25: White Blood Count 5.7, Red Blood Count 3.93L, Hemoglobin 11.1L, Hematocrit 32.5L , Mean Corpuscular Volume 83, Mean Corpuscular Hemoglobin 28.2, Mean Corpuscular Hemoglobin Concent 34.1, Red Cell Distribution Width 12.4, Platelet Count 58L, Mean Platelet Volume 12.3H, Neutrophils (%) (Auto) , Lymphocytes (%) (Auto) , Monocytes (%) (Auto) , Eosinophils (%) (Auto) , Basophils (%) (Auto) , Differential Total Cells Counted 100, Neutrophils % (Manual) 79H, Lymphocytes % (Manual) 8L, Monocytes % (Manual) 2, Eosinophils % (Manual) 0, Basophils % ( Manual) 0, Band Neutrophils 11H, Platelet Estimate DecreasedL, Platelet Morphology Normal, Sodium Level 147H, Potassium Level 3.6, Chloride Level 111H, Carbon Dioxide Level 27, Anion Gap 9, Blood Urea Nitrogen 31H, Creatinine 1.3, Estimat Glomerular Filtration Rate , Glucose Level 62L, Uric Acid 5.6, Calcium Level 8.6, Phosphorus Level 2.8, Magnesium Level 2.0, Total Bilirubin 0.5, Aspartate Amino Transf (AST/SGOT) 80H, Alanine Aminotransferase (ALT/SGPT) 72, Alkaline Phosphatase 51, Total Protein 5.7L, Albumin 2.7L, Globulin 3.0, Albumin /Globulin Ratio 0.9L Height (Feet): 5 Height (Inches): 7.00 Weight (Pounds): 100 Objective General Appearance: no apparent distress Lines, tubes and drains: peripheral HEENT: mucous membranes moist Neck: normal inspection Respiratory/Chest: normal breath sounds, no respiratory distress Cardiovascular/Chest: normal rate Abdomen: soft, no organomegaly, no mass Extremities: non-tender, other Skin Exam: other Neurologic: alert Francisco Rodriguez MD Feb 16, 2018 12:03
[2018-02-16 16:00] VITALS: BP 119/83
--- NOTE | 2018-02-16 16:29 | Diagnostic Imaging Report ---
Indication: Abnormal renal function tests, back pain Technique: Kessler-scale and duplex images of the upper abdomen were obtained. Doppler interrogation of the hepatic and pancreatic vessels Comparison: Findings: Exam somewhat limited, due to limited patient indication. Gallbladder is unremarkable, without stones, wall thickening, nor pericholecystic fluid. Sonographic Jones's sign could not be ascertained, patient noncommunicative. Common bile duct measures 5 mm in diameter. No intrahepatic biliary ductal dilatation. Liver demonstrates normal echogenicity, no focal abnormality. No surface nodularity to suggest cirrhosis Portal vein and hepatic veins are patent. Pancreas is unremarkable. Spleen is unremarkable. Left kidney measures 10 cm in length. Right kidney measures 9 point cm length. Both kidneys demonstrate normal echogenicity. There is mild right hydronephrosis No focal abnormality . The urinary bladder contains a Allred catheter. There is approximately 40 mL of urine within the bladder despite this. Non-aneurysmal abdominal aorta . There is ascites fluid. There are bilateral pleural effusions Impression: Mild right hydronephrosis, etiology not demonstrated Negative for gallstones or dilated ducts No evidence of hepatic cirrhosis Ascites Bilateral pleural effusions Allred catheter. 40 mL retained urine despite this
[2018-02-16] MEDS: Levofloxacin 250mg/D5W 50ml IVPB SCH (16:57)
[2018-02-16 20:00] VITALS: BP 100/70
[2018-02-16] MEDS: Atorvastatin 20mg tab ORAL SCH (21:06)
--- NOTE | 2018-02-16 21:12 | Consultation ---
Consult Note Consult Note NEUROLOGY CONSULTATION: Full note dictated #[id number] 77 y/o, BM of ?H. He was hospitalized on 02/13/18 for AMS and a stage IV sacral decubitus. He was significantly hypernatremic, non verbal and quadriparetic when he came in. ON EXAM: Awake but not alert. Aphasic and mute. Spasic quadriparesis. Globally absent DTRs with flexor plantars. CT of brain with atrophy, DWM disease and left external capsule lacune. IMPRESSION: Suspect chronic debility due to reasons unknown and now a superimposed toxic/ metabolic encephalopathy. REC: Decision made by family for comfort care only. Agree with comfort care Leonel Calvo M.D., M.S.P.H. Leonel Calvo MD Feb 16, 2018 21:12
--- NOTE | 2018-02-16 23:18 | Cardiology Progress Note ---
Assessment/Plan Assessment/Plan 1. Hypotension, resolved, serum sodium better following D5W infusion. 2. Dysphagia, prior history of CVA. CT of head did not show any acute changes, continue aspirin and atorvastatin. 3. Prerenal azotemia/acute kidney injury, resolving. 4. Anemia with thrombocytopenia. 5. Failure to thrive. 6. Metabolic encephalopathy on comfort care. Subjective Subjective Sinus rhythm at rate of 63. Objective Last 24 Hour Vital Signs Date Time Temp Pulse Resp B/P (MAP) Pulse Ox O2 Delivery O2 Flow Rate FiO2 02/16/18 21:00 Room Air 02/16/18 20:00 96.8 63 18 100/70 (80) 96 02/16/18 19:03 59 02/16/18 16:00 58 02/16/18 16:00 97.0 62 19 119/83 (95) 96 02/16/18 12:00 97.0 62 19 112/78 (89) 96 02/16/18 12:00 58 02/16/18 09:00 Room Air 02/16/18 08:00 97.0 64 21 110/77 (88) 98 02/16/18 08:00 62 02/16/18 04:00 96.7 63 18 102/67 (79) 97 02/16/18 03:54 62 02/15/18 23:20 62 Intake and Output 02/15/18 02/16/18 19:00 07:00 Intake Total 1170 ml Output Total 350 ml 300 ml Balance -350 ml 870 ml Intake Free Water 30 ml IV Total 1100 ml Tube Feeding 40 ml Output Urine Total 350 ml 300 ml Laboratory Tests Test 02/16/18 06:25 White Blood Count 5.7 K/UL (4.8-10.8) Red Blood Count 3.93 M/UL (4.70-6.10) L Hemoglobin 11.1 G/DL (14.2-18.0) L Hematocrit 32.5 % (42.0-52.0) L Mean Corpuscular Volume 83 FL (80-99) Mean Corpuscular Hemoglobin 28.2 PG (27.0-31.0) Mean Corpuscular Hemoglobin Concent 34.1 G/DL (32.0-36.0) Red Cell Distribution Width 12.4 % (11.6-14.8) Platelet Count 58 K/UL (150-450) L Mean Platelet Volume 12.3 FL (6.5-10.1) H Neutrophils (%) (Auto) % (45.0-75.0) Lymphocytes (%) (Auto) % (20.0-45.0) Monocytes (%) (Auto) % (1.0-10.0) Eosinophils (%) (Auto) % (0.0-3.0) Basophils (%) (Auto) % (0.0-2.0) Differential Total Cells Counted 100 Neutrophils % (Manual) 79 % (45-75) H Lymphocytes % (Manual) 8 % (20-45) L Monocytes % (Manual) 2 % (1-10) Eosinophils % (Manual) 0 % (0-3) Basophils % (Manual) 0 % (0-2) Band Neutrophils 11 % (0-8) H Platelet Estimate Decreased L Platelet Morphology Normal Sodium Level 147 MMOL/L (136-145) H Potassium Level 3.6 MMOL/L (3.5-5.1) Chloride Level 111 MMOL/L (98-107) H Carbon Dioxide Level 27 MMOL/L (21-32) Anion Gap 9 mmol/L (5-15) Blood Urea Nitrogen 31 mg/dL (7-18) H Creatinine 1.3 MG/DL (0.55-1.30) Estimat Glomerular Filtration Rate mL/min (>60) Glucose Level 62 MG/DL (74-106) L Uric Acid 5.6 MG/DL (2.6-7.2) Calcium Level 8.6 MG/DL (8.5-10.1) Phosphorus Level 2.8 MG/DL (2.5-4.9) Magnesium Level 2.0 MG/DL (1.8-2.4) Total Bilirubin 0.5 MG/DL (0.2-1.0) Aspartate Amino Transf (AST/SGOT) 80 U/L (15-37) H Alanine Aminotransferase (ALT/SGPT) 72 U/L (12-78) Alkaline Phosphatase 51 U/L (46-116) Total Protein 5.7 G/DL (6.4-8.2) L Albumin 2.7 G/DL (3.4-5.0) L Globulin 3.0 g/dL Albumin/Globulin Ratio 0.9 (1.0-2.7) L Microbiology Date/Time Source Procedure Growth Status 02/14/18 17:30 Indwelling Cath Urine Culture - Preliminary NO GROWTH AFTER 24 HOURS Resulted Objective HEENT: Atraumatic and normocephalic. Anicteric. Pupils are equal, round, and reactive to light and accommodation. Extraocular muscles intact. NECK: JVP is less than 5 cm. No carotid bruit. Carotid upstrokes 2+ bilaterally. CARDIOVASCULAR: Normal S1, S2. Regular rate and rhythm. No murmurs, gallops, or rubs. PMI is at fourth intercostal space at the midclavicular line. LUNGS: Clear to auscultation bilaterally. ABDOMEN: Soft, nontender, and nondistended. No hepatosplenomegaly. Positive bowel sounds. EXTREMITIES: No evidence of edema, clubbing, or cyanosis. Toney Chery MD Feb 16, 2018 23:18
--- NOTE | 2018-02-16 23:30 | Consultation ---
DATE OF CONSULTATION: 02/16/2018 NEUROLOGY CONSULTATION CONSULTING PHYSICIAN: Leonel Calvo M.D. REQUESTING PHYSICIAN: [place] Harmon M.D. HISTORY: Mr. Jayson Fleming is a 77-year-old, black gentleman, of unknown handedness, who was hospitalized on 02/13/2018 for an altered mental state and a stage IV sacral decubitus. He continued to have a significant alteration in his mental state and in addition has exhibited some weakness which at one time, it was more left-sided. This consultation was requested to evaluate the patient from a neurological point of view. At this point in time, the Mr. Fleming is aphasic and unable to communicate in any manner. It is unclear as to what his baseline mental status at home is. He however has stage IV sacral decubitus and most probably has not been moving much. On hospitalization, he was noted to be significantly hypernatremic, had a urinary tract infection, was nonverbal and quadriparetic. At this point in time, the patient continues to be aphasic, mute, and unable to cooperate much for an examination. PAST MEDICAL HISTORY: Unavailable. FAMILY HISTORY: Unavailable. PERSONAL HISTORY: Unavailable. PRESENT MEDICATIONS: Levofloxacin, aspirin, Lipitor, Ativan, pantoprazole, Tylenol. PHYSICAL EXAMINATION: GENERAL: He is a well-developed, ill looking black gentleman, lying in bed, exhibiting myoclonic jerks. VITAL SIGNS: Pulse 62/minute, blood pressure 119/83 mmHg, respirations 19/minute, temperature 97 degrees Fahrenheit. HEAD: Normocephalic and atraumatic. EENT: Examination benign. NECK: No neck rigidity was observed. NEUROLOGIC EXAMINATION: MENTAL STATUS EXAMINATION: He was awake, but not alert. He was unable to cooperate for further mental status testing because he was severely aphasic. SPEECH: Could not be tested as he was mute. LANGUAGE: Could not be tested because he was severely aphasic. CRANIAL NERVE EXAMINATION: II: He did blink to threat. III, IV & : External ocular movements were present on oculocephalic maneuvers. The pupils were 3 mm in diameter, equal, round, regular, and reactive sluggishly to light. V & VII: Corneal reflexes were present and symmetrical. VIII: He did respond to sounds and had no nystagmus. IX & X: The gag reflex was subdued. XI: The sternocleidomastoids and trapezii did function. XII: The tongue was in the midline. MOTOR SYSTEM: The tone was increased in all four extremities with a combination of spasticity and gegenhalten. Examination of muscle mass revealed generalized muscle wasting. Examination of power was impossible to perform on individual muscle groups, however, when deep painful stimuli were applied, he moved all four extremities minimally. SENSORY EXAMINATION: He responded appropriately to deep pain. He was unable to cooperate for the sensory modalities. REFLEXES: 0 at the biceps, triceps, brachioradialis, knees, and ankles. The plantar responses were flexor bilaterally. COORDINATION, STANCE & GAIT: Could not be tested. DIAGNOSTIC IMPRESSION: 1. Mr. Jayson Fleming is a 77-year-old, black gentleman, of unknown handedness, with nebulous past history who was hospitalized for an altered mental state and stage IV decubitus ulcer on his sacrum. He was found to be significantly hypernatremic, nonverbal and quadriparetic when he came in. 2. On neurological examination, at this time, he is awake, but not alert, severely aphasic and mute, has a spastic quadriparesis with significant gegenhalten, has globally absent deep tendon reflexes and is unable to stand and walk. 3. CT scan of the brain without contrast reveals atrophy, deep white matter disease, and left external capsule lacune, but no acute pathology. 4. Laboratory data revealed that on admission, his hemoglobin was low at 13.1 G. His chemistry panel revealed a sodium elevated at 157, chloride elevated to 120, BUN elevated at 39, with a creatinine of 1.3. Low glucose at 60. His B12 level was >2000. Folate level was normal at 13.9. TSH was elevated at 5.41. His urinalysis reveals 2+ leukocyte esterase, 15-20 red blood cells and 5-10 white blood cells per high-power field. 5. The patient's history, neurological examination, laboratory data, and imaging studies are most compatible with underlying chronic debility due to reasons that are unknown to us and now a super added toxic metabolic encephalopathy related to significant and severe dehydration and in addition, an acute infectious process. RECOMMENDATIONS: 1. Agree with management thus far. 2. The patient's family has made the decision to stop any further treatment and aimed for comfort care which is reasonable in this case. 3. No further neurological intervention will be ordered at this point in time, because of the changing of his level of care to comfort care only. Thank you for entrusting me with the care of Mr. Fleming. Please do let me know if I can be of any further help. Leonel Calvo M.D., M.S.P.H. DR: Marion JOB#: [id number]
[2018-02-17] VITALS: BP 112/76
[2018-02-17 04:00] VITALS: BP 110/71
--- NOTE | 2018-02-17 04:45 | Progress Note ---
DATE: 02/16/2018 SUBJECTIVE: This is an elderly male, currently nonverbal and bedbound, and he is progressively deteriorated. He is not eating any food. He failed the swallowing evaluation. Family does not want to have PEG tube or NG tube. He is requesting for and skilled nursing placement. The patient is currently nonverbal, opens his eyes, looks comfortable. PHYSICAL EXAMINATION: VITAL SIGNS: Blood pressure is 112/78, pulse 58, no fever. CHEST: Bilaterally clear. CARDIOVASCULAR: Regular rhythm. No gallop. No murmur. ABDOMEN: Soft. EXTREMITIES: CCE. LABORATORY AND DIAGNOSTIC DATA: CBC is unremarkable. Sodium 147, potassium 3.6, BUN 31, creatinine 1.3. ASSESSMENT: 1. Altered mental status. 2. Dehydration. 3. Parkinson disease. 4. Decubitus. PLAN: 1. The patient's family requested DNR/DNI, hospice care. 2. Discharge plan to SNF and hospitalist was called, discussed with case managers. 3. No IV fluids and no p.o. feeding. [place] M.D. DR: Ember JOB#: [id number] CC:
[2018-02-17 08:00] VITALS: BP 106/43
[2018-02-17] MEDS: Pantoprazole Inj IVP SCH (08:16)
[2018-02-17] MEDS: Aspirin EC 81mg tab ORAL SCH (08:16)
--- NOTE | 2018-02-17 08:44 | Cardiology Report ---
APPROVED REPORT EXAM: Two-dimensional and M-mode echocardiogram with Doppler and color Doppler. INDICATION CVA M-Mode DIMENSIONS IVSd0.8 (0.7-1.1cm)Left Atrium (MM)3.2 (1.6-4.0cm) LVDd4.1 (3.5-5.6cm)Aortic Root3.1 (2.0-3.7cm) PWd1.0 (0.7-1.1cm)Aortic Cusp Exc.1.8 (1.5-2.0cm) IVSs0.8 cm LVDs2.6 (2.5-4.0cm) PWs1.0 cm Technically difficult study due to pts resistance . Normal left ventricular chamber size, systolic function and wall motion. Left ventricular ejection fraction estimated to be 55 %. No evidence of left ventricular hypertrophy . No evidence of pericardial effusion. All other cardiac chamber sizes are within normal limits. Focal aortic valve sclerosis with adequate cusp excursion. Thickened mitral valve leaflets with normal excursion. Mitral annulus and aortic root calcification. Normal pulmonic valve structure. Normal tricuspid valve structure. IVC at normal size with physiologic collapse. A color flow and spectral Doppler study was performed and revealed: No aortic regurgitation.. Moderate mitral regurgitation. Mitral diastolic velocities suggest reduced left ventricular relaxation c/w mild LV diastolic dysfunction (Grade I ). Moderate tricuspid regurgitation. Tricuspid systolic velocities suggests peak right ventricular systolic pressure of 40 mmHg,consistent with mild pulmonary hypertension. No Pulmonic regurgitation present.
--- NOTE | 2018-02-17 09:23 | Nephrology Progress Note ---
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 (3) CVA (cerebral vascular accident) (4) Hypernatremia (5) Urinary retention Assessment Altered mental status CVA (cerebral vascular accident) Hypernatremia Dehydration / Urinary retention Dysphagia Decubitus ulcer of sacral region, stage 4 Plan Plan: D5W Monitor renal parameters Skin care donnelly Subjective ROS Limited/Unobtainable: No Objective Objective Last 24 Hour Vital Signs Date Time Temp Pulse Resp B/P (MAP) Pulse Ox O2 Delivery O2 Flow Rate FiO2 02/17/18 04:00 97.2 61 16 110/71 (84) 99 02/17/18 03:21 56 02/17/18 00:00 97.1 58 20 112/76 (88) 98 02/16/18 23:27 57 02/16/18 21:00 Room Air 02/16/18 20:00 96.8 63 18 100/70 (80) 96 02/16/18 19:03 59 02/16/18 16:00 58 02/16/18 16:00 97.0 62 19 119/83 (95) 96 02/16/18 12:00 97.0 62 19 112/78 (89) 96 02/16/18 12:00 58 Intake and Output 02/16/18 02/17/18 18:59 06:59 Intake Total 800 ml Output Total 800 ml 403 ml Balance 0 ml -403 ml IV Total 800 ml Output Urine Total 800 ml 400 ml Stool Total 3 ml # Bowel Movements 1 Height (Feet): 5 Height (Inches): 7.00 Weight (Pounds): 100 General Appearance: no apparent distress EENT: other - NGT + Respiratory/Chest: decreased breath sounds Abdomen: soft Objective no change Ben Gandhi MD Feb 17, 2018 09:23
--- NOTE | 2018-02-17 10:45 | General Progress Note ---
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 (2) Anxiety ICD Codes: F41.9 - Anxiety disorder, unspecified SNOMED: 19552032 Status: unchanged Assessment/Plan ativan prn seroquel prn raise the head to prevent aspiration the pt was administer Ativan and the pt became hypotensive Subjective Date patient seen: Feb 17, 2018 Neurologic/Psychiatric: Reports: anxiety Allergies: Coded Allergies: No Known Allergies (Unverified , 02/13/18) Subjective The pt has waxing and waning of consciousness. he has episodes of agitation Objective Last 24 Hour Vital Signs Date Time Temp Pulse Resp B/P (MAP) Pulse Ox O2 Delivery O2 Flow Rate FiO2 02/17/18 09:00 Room Air 02/17/18 08:00 97.2 59 21 106/43 (64) 100 02/17/18 08:00 56 02/17/18 04:00 97.2 61 16 110/71 (84) 99 02/17/18 03:21 56 02/17/18 00:00 97.1 58 20 112/76 (88) 98 02/16/18 23:27 57 02/16/18 21:00 Room Air 02/16/18 20:00 96.8 63 18 100/70 (80) 96 02/16/18 19:03 59 02/16/18 16:00 58 02/16/18 16:00 97.0 62 19 119/83 (95) 96 02/16/18 12:00 97.0 62 19 112/78 (89) 96 02/16/18 12:00 58 Intake and Output 02/16/18 02/17/18 18:59 06:59 Intake Total 800 ml Output Total 800 ml 403 ml Balance 0 ml -403 ml IV Total 800 ml Output Urine Total 800 ml 400 ml Stool Total 3 ml # Bowel Movements 1 Height (Feet): 5 Height (Inches): 7.00 Weight (Pounds): 100 General Appearance: no apparent distress, alert, confused, agitated Jesus Jack MD Feb 17, 2018 10:45
[2018-02-17 12:00] VITALS: BP 95/64
[2018-02-17] MEDS: Levofloxacin 250mg/D5W 50ml IVPB SCH (15:42)
[2018-02-17] MEDS ORDERED: LORazepam Inj 2mg/ml 1ml IV SCH (15:45)
[2018-02-17 16:00] VITALS: BP 109/78
[2018-02-17] MEDS ORDERED: LORazepam Inj 2mg/ml 1ml IV PRN (16:00)
--- NOTE | 2018-02-17 16:41 | Cardiology Report ---
APPROVED REPORT EKG Measurement Heart [id number] Atrial flutter with variable AV block with premature ventricular or aberrantly conducted complexes Nonspecific ST and T wave abnormality Abnormal ECG
--- NOTE | 2018-02-17 17:04 | Cardiology Report ---
APPROVED REPORT EKG Measurement Heart [id number] Normal sinus rhythm Left ventricular hypertrophy with QRS widening Prolonged QT Abnormal ECG
--- NOTE | 2018-02-17 18:45 | Progress Note ---
DATE: 02/17/2018 SUBJECTIVE: This is an elderly male, who came in with altered mental status , the patient has hypothermia this morning, but is asymptomatic. He opens his eyes. No distress. PHYSICAL EXAMINATION: VITAL SIGNS: Blood pressure is 95/64, pulse 58, respirations 21, temperature 92.4. HEENT: Eyes are open. NECK: Supple. CHEST: Bilaterally clear. CARDIOVASCULAR: Regular rhythm. ABDOMEN: Soft. EXTREMITIES: CCE. NEUROLOGICAL: Generalized weakness, bedbound, and has sacral decubiti. He is tolerating tube feeding. ASSESSMENT: 1. Altered mental status. 2. Parkinson disease. 3. Decubitus. 4. Generalized weakness. PLAN: We will currently continue NG tube. The patient is a DNR/DNI. I left the message to the son. MRI of the brain, probably long-term is not going to make any difference in the treatment plan. The patient is probably waiting for placement as well as a hospice consult and they were already informed. Discussed with charge nurse. He has hypothermia, the patient is asymptomatic and discussed with charge nurse. [place] M.D. DR: Ember JOB#: [id number] CC:
[2018-02-17 20:00] VITALS: BP 120/75
[2018-02-17] MEDS: Atorvastatin 20mg tab ORAL SCH (20:53)
--- NOTE | 2018-02-17 22:50 | Cardiology Progress Note ---
Assessment/Plan Assessment/Plan 1. Hypotension, resolved, continue hydration, BMP in am. 2. Dysphagia, prior history of CVA, continue aspirin and atorvastatin. 3. Prerenal azotemia/acute kidney injury, resolving. 4. Anemia with thrombocytopenia. 5. Failure to thrive. 6. Metabolic encephalopathy on comfort care. Subjective Subjective Sinus rhythm at rate of 65. Objective Last 24 Hour Vital Signs Date Time Temp Pulse Resp B/P (MAP) Pulse Ox O2 Delivery O2 Flow Rate FiO2 02/17/18 21:00 Room Air 02/17/18 20:00 97.7 65 16 120/75 (90) 94 02/17/18 20:00 65 02/17/18 16:00 95.4 77 18 109/78 (88) 96 02/17/18 16:00 64 02/17/18 12:00 92.4 58 21 95/64 (74) 95 02/17/18 12:00 55 02/17/18 09:00 Room Air 02/17/18 08:00 59 21 106/43 (64) 100 02/17/18 08:00 56 02/17/18 04:00 97.2 61 16 110/71 (84) 99 02/17/18 03:21 56 02/17/18 00:00 97.1 58 20 112/76 (88) 98 02/16/18 23:27 57 Intake and Output 02/16/18 02/17/18 18:59 06:59 Intake Total 800 ml Output Total 800 ml 403 ml Balance 0 ml -403 ml IV Total 800 ml Output Urine Total 800 ml 400 ml Stool Total 3 ml # Bowel Movements 1 Objective HEENT: Atraumatic and normocephalic. Anicteric. Pupils are equal, round, and reactive to light and accommodation. Extraocular muscles intact. NECK: JVP is less than 5 cm. No carotid bruit. Carotid upstrokes 2+ bilaterally. CARDIOVASCULAR: Normal S1, S2. Regular rate and rhythm. No murmurs, gallops, or rubs. PMI is at fourth intercostal space at the midclavicular line. LUNGS: Clear to auscultation bilaterally. ABDOMEN: Soft, nontender, and nondistended. No hepatosplenomegaly. Positive bowel sounds. EXTREMITIES: No evidence of edema, clubbing, or cyanosis. Toney Chery MD Feb 17, 2018 22:50
[2018-02-17] MEDS ORDERED: Sodium Chloride 500ML 500 ML IV PRN (23:00)
[2018-02-17] MEDS ORDERED: LORazepam 0.5mg tab ORAL PRN (23:00)
[2018-02-18 04:00] VITALS: BP 99/61
[2018-02-18] MEDS ORDERED: LORazepam Inj 2mg/ml 1ml IV SCH (08:16)
[2018-02-18 08:24] VITALS: BP 98/62
[2018-02-18] MEDS ORDERED: Acetaminophen 650mg/20.3ml NG PRN (08:44)
[2018-02-18] MEDS ORDERED: LORazepam 0.5mg tab NG PRN (08:45)
[2018-02-18] MEDS ORDERED: Aspirin Baby 81mg NG SCH (09:00)
[2018-02-18] MEDS ORDERED: Aspirin EC 81mg tab ORAL SCH (09:00)
[2018-02-18] MEDS ORDERED: Pantoprazole Inj IVP SCH (09:00)
--- NOTE | 2018-02-18 09:43 | General Surgery Progress Note ---
General Surgery-Progress Note Subjective Additional Comments still unresponsive. NG tube in place. imaging and labs noted Objective Last 24 Hour Vital Signs Date Time Temp Pulse Resp B/P (MAP) Pulse Ox O2 Delivery O2 Flow Rate FiO2 02/18/18 08:24 98.6 82 18 98/62 (74) 95 02/18/18 04:00 98.8 78 20 99/61 (74) 99 02/18/18 00:14 95.9 02/17/18 21:00 Room Air 02/17/18 20:00 97.7 65 16 120/75 (90) 94 02/17/18 20:00 65 02/17/18 16:00 95.4 77 18 109/78 (88) 96 02/17/18 16:00 64 02/17/18 12:00 92.4 58 21 95/64 (74) 95 02/17/18 12:00 55 I&O Intake and Output 02/17/18 02/18/18 19:00 07:00 Intake Total 860 ml 100 ml Output Total 800 ml Balance 860 ml -700 ml Intake Oral 360 ml Free Water 50 ml IV Total 450 ml 100 ml Output Urine Total 800 ml # Bowel Movements 1 Dressing: saturated Wound: other Drains: other Cardiovascular: RSR Respiratory: clear Abdomen: soft, flat, present bowel sounds Extremities: other Plan Problems: (1) Decubitus ulcer of sacral region, stage 4 Assessment & Plan: 77 year old male presented with Resolving stage 4 full thickness sacral decubitus ulcer. Seems to have had prior debridement and care. Seems to be healing well over time. Chronic. no odor. no significant drainage. no signs of infection. wound bed clean with granulation tissue. 3x4. brady-wound clean. Plan: Wash sacral decubitus ulcer daily with NS, apply hydrogel, pack with gauze, apply foam dressing daily and prn turn q2h air mattress heel protectors (2) Dysphagia Assessment & Plan: would recommend feeding tube if continued care wounds will not heal without proper nutrition otherwise ng tube for now and hospice care thank you Rudy Cloud Feb 18, 2018 09:43
--- NOTE | 2018-02-18 10:29 | Nephrology Progress Note ---
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 (3) CVA (cerebral vascular accident) (4) Hypernatremia (5) Urinary retention Assessment Altered mental status CVA (cerebral vascular accident) Hypernatremia Dehydration / Urinary retention Dysphagia Decubitus ulcer of sacral region, stage 4 Plan Plan: D5W- decrease rate Monitor renal parameters Skin care donnelly monitor rlab Subjective ROS Limited/Unobtainable: No Objective Objective Last 24 Hour Vital Signs Date Time Temp Pulse Resp B/P (MAP) Pulse Ox O2 Delivery O2 Flow Rate FiO2 02/18/18 08:24 98.6 82 18 98/62 (74) 95 02/18/18 04:00 98.8 78 20 99/61 (74) 99 02/18/18 00:14 95.9 02/17/18 21:00 Room Air 02/17/18 20:00 97.7 65 16 120/75 (90) 94 02/17/18 20:00 65 02/17/18 16:00 95.4 77 18 109/78 (88) 96 02/17/18 16:00 64 02/17/18 12:00 92.4 58 21 95/64 (74) 95 02/17/18 12:00 55 Intake and Output 02/17/18 02/18/18 18:59 06:59 Intake Total 860 ml 100 ml Output Total 800 ml Balance 860 ml -700 ml Intake Oral 360 ml Free Water 50 ml IV Total 450 ml 100 ml Output Urine Total 800 ml # Bowel Movements 1 Height (Feet): 5 Height (Inches): 7.00 Weight (Pounds): 159 General Appearance: no apparent distress EENT: other - NGt Objective no change Ben Gandhi MD Feb 18, 2018 10:29
[2018-02-18 11:20] LABS: HEMATOCRIT 32.4 % (42.0-52.0); HEMOGLOBIN 10.9 G/DL (14.2-18.0); MEAN CORPUSCULAR VOLUME 82 FL (80-99); PLATELET COUNT 49 K/UL (150-450); RED BLOOD COUNT 3.93 M/UL (4.70-6.10); RED CELL DISTRIBUTION WIDTH 12.3 % (11.6-14.8); WHITE BLOOD COUNT 4.7 K/UL (4.8-10.8)
[2018-02-18 11:40] LABS: ALANINE AMINOTRANSFERASE 82 U/L (12-78); ALBUMIN 2.3 G/DL (3.4-5.0); ALBUMIN/GLOBULIN RATIO 0.7 (1.0-2.7); ALKALINE PHOSPHATASE 71 U/L (46-116); ANION GAP 6 mmol/L (5-15); ASPARTATE AMINO TRANSFERASE 67 U/L (15-37); BILIRUBIN,TOTAL 0.6 MG/DL (0.2-1.0); BLOOD UREA NITROGEN 34 mg/dL (7-18); CALCIUM 8.7 MG/DL (8.5-10.1); CARBON DIOXIDE 28 MMOL/L (21-32); CHLORIDE 109 MMOL/L (98-107); CREATININE 1.4 MG/DL (0.55-1.30); PHOSPHORUS 2.6 MG/DL (2.5-4.9); SODIUM 143 MMOL/L (136-145)
[2018-02-18 12:07] VITALS: BP 89/54
--- NOTE | 2018-02-18 12:29 | Diagnostic Imaging Report ---
Indication: Altered mental status Technique: sagittal T1 fast spin echo, axial T1 FLAIR, axial T2 FLAIR, axial T2 FS PROPELLER, axial T2* GRE, axial diffusion weighted images. ADC and exponential ADC maps generated Comparison: Brain CT 02/13/2018 Findings: No abnormal areas of restricted diffusion to suggest acute infarction. No acute hemorrhage or edema. There is periventricular and subcortical deep white matter high T2 signal foci, most likely on the basis of chronic ischemic change. Some of this process also corresponds to the external capsular abnormality described on recent CT scan. No mass effect nor midline shift. There is age-related enlargement of the ventricles and extra axial CSF spaces. Visualized orbits and sinuses are unremarkable.. Visualized orbits and sinuses are unremarkable. Impression: Chronic volume loss and T2 hyperdense foci likely representing chronic ischemic change. Negative for acute intracranial bleed, mass effect, or infarct
[2018-02-18 15:48] VITALS: BP 104/63
[2018-02-18] MEDS ORDERED: ACETAMINOPHEN325 M1 NG (16:06)
[2018-02-18] MEDS ORDERED: ASPIRIN81 MG NG (16:09)
[2018-02-18] MEDS ORDERED: LIPITOR80 MG NG (16:10)
[2018-02-18] MEDS ORDERED: LEVOFLOXAC250 MG/10 NG (16:11)
[2018-02-18] MEDS ORDERED: FAMOTIDINE20 MG NGT (16:11)
[2018-02-18] MEDS ORDERED: Tubing IV Secondary IV ONE (17:54)
--- NOTE | 2018-02-18 19:30 | Progress Note ---
DATE: 02/18/2018 SUBJECTIVE: This is a 77-year-old male, who is currently in bed, nonverbal, tolerating NG tube feeding. His MRI is negative. The patient is currently nonverbal and bedbound. PHYSICAL EXAMINATION: VITAL SIGNS: Blood pressure is asymptomatic. CHEST: Bilaterally clear. CARDIOVASCULAR: Regular rhythm. ABDOMEN: Soft. EXTREMITIES: No CCE. SKIN: Sacral decubitus stage III. ASSESSMENT: 1. Altered mental status. 2. Parkinson disease, getting worse. 3. Encephalopathy. 4. Dysphagia. Left a message yesterday, the son, he want to do MRI. MRI is negative. The patient probably can go back to the halfway for wound care, NG feedings, speech therapy and swallow evaluation. Continue antibiotics for three days. Continue Pepcid. Continue supportive treatment and probably hospice care. If I agree, son is agree with the hospice care. [place] M.D. DR: Ember JOB#: [id number] CC:
[2018-02-18] MEDS ORDERED: Atorvastatin 20mg tab ORAL SCH (21:00)
[2018-02-18] MEDS ORDERED: Atorvastatin 20mg tab NG SCH (21:00)
--- NOTE | 2018-02-18 21:51 | Cardiology Progress Note ---
Assessment/Plan Assessment/Plan 1. Hypotension, continue hydration,. 2. Dysphagia, prior history of CVA, continue aspirin and atorvastatin. 3. Prerenal azotemia/acute kidney injury, resolving. 4. Anemia with thrombocytopenia. 5. Failure to thrive. 6. Metabolic encephalopathy on comfort care. Subjective Subjective Transferred to the med-surg unit. No cardiac events. Objective Last 24 Hour Vital Signs Date Time Temp Pulse Resp B/P (MAP) Pulse Ox O2 Delivery O2 Flow Rate FiO2 02/18/18 15:48 97.0 62 16 104/63 (77) 100 02/18/18 12:07 97.1 68 16 89/54 (66) 97 02/18/18 09:00 Room Air 02/18/18 08:24 98.6 82 18 98/62 (74) 95 02/18/18 04:00 98.8 78 20 99/61 (74) 99 02/18/18 00:14 95.9 Intake and Output 02/17/18 02/18/18 19:00 07:00 Intake Total 860 ml 200 ml Output Total 800 ml Balance 860 ml -600 ml Intake Oral 360 ml Free Water 50 ml IV Total 450 ml 200 ml Output Urine Total 800 ml # Bowel Movements 1 Laboratory Tests Test 02/18/18 11:10 White Blood Count 4.7 K/UL (4.8-10.8) L Red Blood Count 3.93 M/UL (4.70-6.10) L Hemoglobin 10.9 G/DL (14.2-18.0) L Hematocrit 32.4 % (42.0-52.0) L Mean Corpuscular Volume 82 FL (80-99) Mean Corpuscular Hemoglobin 27.7 PG (27.0-31.0) Mean Corpuscular Hemoglobin Concent 33.5 G/DL (32.0-36.0) Red Cell Distribution Width 12.3 % (11.6-14.8) Platelet Count 49 K/UL (150-450) L Mean Platelet Volume 11.5 FL (6.5-10.1) H Neutrophils (%) (Auto) % (45.0-75.0) Lymphocytes (%) (Auto) % (20.0-45.0) Monocytes (%) (Auto) % (1.0-10.0) Eosinophils (%) (Auto) % (0.0-3.0) Basophils (%) (Auto) % (0.0-2.0) Differential Total Cells Counted 100 Neutrophils % (Manual) 71 % (45-75) Lymphocytes % (Manual) 7 % (20-45) L Monocytes % (Manual) 8 % (1-10) Eosinophils % (Manual) 0 % (0-3) Basophils % (Manual) 0 % (0-2) Band Neutrophils 14 % (0-8) H Platelet Estimate Decreased L Platelet Morphology Giant Platelets Rare Hypochromasia 1+ Sodium Level 143 MMOL/L (136-145) Potassium Level 3.0 MMOL/L (3.5-5.1) L Chloride Level 109 MMOL/L (98-107) H Carbon Dioxide Level 28 MMOL/L (21-32) Anion Gap 6 mmol/L (5-15) Blood Urea Nitrogen 34 mg/dL (7-18) H Creatinine 1.4 MG/DL (0.55-1.30) H Estimat Glomerular Filtration Rate mL/min (>60) Glucose Level 75 MG/DL (74-106) Calcium Level 8.7 MG/DL (8.5-10.1) Phosphorus Level 2.6 MG/DL (2.5-4.9) Magnesium Level 2.0 MG/DL (1.8-2.4) Total Bilirubin 0.6 MG/DL (0.2-1.0) Aspartate Amino Transf (AST/SGOT) 67 U/L (15-37) H Alanine Aminotransferase (ALT/SGPT) 82 U/L (12-78) H Alkaline Phosphatase 71 U/L (46-116) Total Protein 5.7 G/DL (6.4-8.2) L Albumin 2.3 G/DL (3.4-5.0) L Globulin 3.4 g/dL Albumin/Globulin Ratio 0.7 (1.0-2.7) L Objective HEENT: Atraumatic and normocephalic. Anicteric. Pupils are equal, round, and reactive to light and accommodation. Extraocular muscles intact. NECK: JVP is less than 5 cm. No carotid bruit. Carotid upstrokes 2+ bilaterally. CARDIOVASCULAR: Normal S1, S2. Regular rate and rhythm. No murmurs, gallops, or rubs. PMI is at fourth intercostal space at the midclavicular line. LUNGS: Clear to auscultation bilaterally. ABDOMEN: Soft, nontender, and nondistended. No hepatosplenomegaly. Positive bowel sounds. EXTREMITIES: No evidence of edema, clubbing, or cyanosis. Toney Chery MD Feb 18, 2018 21:51
--- NOTE | 2018-02-18 22:31 | General Progress Note ---
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 he has episodes of agitation his mental condition is unchanged Objective Last 24 Hour Vital Signs Date Time Temp Pulse Resp B/P (MAP) Pulse Ox O2 Delivery O2 Flow Rate FiO2 02/18/18 15:48 97.0 62 16 104/63 (77) 100 02/18/18 12:07 97.1 68 16 89/54 (66) 97 02/18/18 09:00 Room Air 02/18/18 08:24 98.6 82 18 98/62 (74) 95 02/18/18 04:00 98.8 78 20 99/61 (74) 99 02/18/18 00:14 95.9 Intake and Output 02/17/18 02/18/18 19:00 07:00 Intake Total 860 ml 200 ml Output Total 800 ml Balance 860 ml -600 ml Intake Oral 360 ml Free Water 50 ml IV Total 450 ml 200 ml Output Urine Total 800 ml # Bowel Movements 1 Laboratory Tests 02/18/18 11:10: White Blood Count 4.7L, Red Blood Count 3.93L, Hemoglobin 10.9L, Hematocrit 32.4L, Mean Corpuscular Volume 82, Mean Corpuscular Hemoglobin 27.7, Mean Corpuscular Hemoglobin Concent 33.5, Red Cell Distribution Width 12.3, Platelet Count 49L, Mean Platelet Volume 11.5H, Neutrophils (%) (Auto) , Lymphocytes (%) (Auto) , Monocytes (%) (Auto) , Eosinophils (%) (Auto) , Basophils (%) (Auto) , Differential Total Cells Counted 100, Neutrophils % (Manual) 71, Lymphocytes % ( Manual) 7L, Monocytes % (Manual) 8, Eosinophils % (Manual) 0, Basophils % ( Manual) 0, Band Neutrophils 14H, Platelet Estimate DecreasedL, Platelet Morphology , Giant Platelets Rare, Hypochromasia 1+, Sodium Level 143, Potassium Level 3.0L, Chloride Level 109H, Carbon Dioxide Level 28, Anion Gap 6 , Blood Urea Nitrogen 34H, Creatinine 1.4H, Estimat Glomerular Filtration Rate , Glucose Level 75, Calcium Level 8.7, Phosphorus Level 2.6, Magnesium Level 2.0 , Total Bilirubin 0.6, Aspartate Amino Transf (AST/SGOT) 67H, Alanine Aminotransferase (ALT/SGPT) 82H, Alkaline Phosphatase 71, Total Protein 5.7L, Albumin 2.3L, Globulin 3.4, Albumin/Globulin Ratio 0.7L Height (Feet): 5 Height (Inches): 7.00 Weight (Pounds): 159 General Appearance: alert, confused, agitated Jesus Jack MD Feb 18, 2018 22:31
--- NOTE | 2018-02-19 11:23 | Discharge Summary ---
Discharge Summary Discharge Summary _ DATE OF ADMISSION: 02/13/2018 DATE OF DISCHARGE: 02/18/2018 CONSULTANTS: Dr. Jesus Rodriguez [facility] HOSPITAL COURSE: Patient is a 77-year-old male, who presented to emergency room due to altered mental status. Patient unable to talk, had dysphagia. He came from home. On evaluation at ED, blood work did not show any leukocytoses, hemoglobin and hematocrit were stable, platelet was low. Sodium was elevated to 153, chloride 114, BUN 44 and creatinine 1.4. Troponin was negative. Lactic acid was elevated to 3.9. He had an EKG that showed normal sinus rhythm. Head CT showed chronic age-related changes negative acute intracranial bleed or mass effect. 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 Chest x-ray showed no acute process. He was admitted for evaluation of encephalopathy, UTI, dehydration, and hypernatremia. He was placed on nothing by mouth. Swallow evaluation was done and recommended strict nothing by mouth. NG tube inserted. He was given D5W. Renal function was monitored. He had episodes of low blood pressure and was given albumin infusion. Legal Department Manager was consulted for evaluation of thrombocytopenia. HIV and hepatitis panel were negative. Abdominal ultrasound showed unremarkable spleen and liver. Negative for gallstone. He had thrombocytopenia which is multifactorial. Anemia workup was done. Ferritin was 594. Patient was assessed to have anemia of chronic disease. Forging Press Setter Up was consulted. Hypotension possibly due to severe intravascular volume depletion as well as kidney injury. Echocardiogram done showed ejection fraction 55%, moderate mitral regurgitation, moderate tricuspid regurgitation and pulmonary hypertension. Neuro evaluation was done. Patient was aphasic and unable to communicate. Unclear of baseline mental status. Patient was assessed to have chronic debility with superadded toxic metabolic encephalopathy related to significant and severe dehydration and possible acute acute infectious process. He had episodes of agitation. Psychiatrist was consulted. He was given Ativan and Seroquel. He was noted to to have sacral stage IV ulcer on admission. Surgery was called to evaluate and assist with management. Patient seemed to have prior debridement done and seemed to be healing well. There was no sign of infection. Wound bed was clean with granulation tissue. He was placed on wound care and was placed on air mattress. Recommended frequent turning and offloading. Brain MRI done showed negative acute intracranial bleed, mass effect or infarct. There were findings of chronic ischemic changes. Urine culture did not isolate any growth. Blood culture did not isolate any growth. Patient's family requested DO NOT RESUSCITATE/DO NOT INTUBATE and hospice care. Patient was then transferred to [facility] with hospice. FINAL DIAGNOSES: Altered mental status/encephalopathy Parkinson's disease Dysphagia Hypotension Acute kidney injury Thrombocytopenia Anemia of chronic disease Hypernatremia Anxiety Decubitus ulcer of the sacral region stage IV, present on admission DISPOSITION: Patient was discharged to SNF with hospice. DISCHARGE MEDICATIONS: Refer to Discharge Medication List. I have been assigned to dictate discharge summary on this account, and I was not involved in the patient's management. Maria D Jang NP Feb 19, 2018 11:23
--- NOTE | 2018-02-19 23:13 | Diagnostic Imaging Report ---
APPROVED REPORT CPT Code: 75349 Present Symptoms Comments: BILATERAL LEGS PAIN. BILATERAL: Imaging reveals a patent deep venous system bilaterally. There is no evidence of thrombus within the femoral, popliteal or tibial segments. The greater saphenous veins are also within normal limits. Doppler indicates normal spontaneous flow within these segments.
== END 2018-02-18 17:55 | DRG 91 ==
LOC: EMR 12:00 → 2E 16:35 → EDBEDREQ 16:46 → 4E 02-17 22:30
DX: G92 Toxic encephalopathy (principal); L89.154 Pressure ulcer of sacral region, stage 4; E43 Unspecified severe protein-calorie malnutrition; G82.50 Quadriplegia, unspecified; E87.0 Hyperosmolality and hypernatremia; N17.9 Acute kidney failure, unspecified; Z68.1 Body mass index [BMI] 19.9 or less, adult; Z51.5 Encounter for palliative care; E86.0 Dehydration; I69.391 Dysphagia following cerebral infarction; R13.10 Dysphagia, unspecified; R62.7 Adult failure to thrive; I95.9 Hypotension, unspecified; D69.6 Thrombocytopenia, unspecified; D63.8 Anemia in other chronic diseases classified elsewhere; G20 Parkinson's disease; Z66 Do not resuscitate; R33.9 Retention of urine, unspecified; F41.9 Anxiety disorder, unspecified; I34.0 Nonrheumatic mitral (valve) insufficiency; I36.1 Nonrheumatic tricuspid (valve) insufficiency; I27.20 Pulmonary hypertension, unspecified
CPT/HCPCS: 36415; 70450; 70551; 71045; 74018; 76700; 80048; 80053; 80061; 81001; 82550; 82553; 82607; 82728; 82746; 82962; 82977; 83010; 83036; 83540; 83550; 83605; 83615; 83735; 83880; 84100; 84443; 84484; 84550; 85007; 85025; 85610; 85730; 86140; 86703; 86705; 86709; 86803; 87040; 87086; 87340; 93005; 93306; 93970; 96360; 96361; 99285